=== PATIENT | female | born 1965 | race Caucasian/White ===

== ENCOUNTER 2023-10-08 00:19 | Emergency (ER) | payer BC, SELFPAY ==
--- NOTE | 2023-10-08 | ECG_ITS ---
Test Reason : PALPATATIONS Blood Pressure : / mmHG Vent. Rate : 078 BPM Atrial Rate : 078 BPM P-R Int : 180 ms QRS Dur : 100 ms QT Int : 414 ms P-R-T Axes : 051 017 050 degrees QTc Int : 471 ms Normal sinus rhythm Incomplete right bundle branch block Borderline ECG When compared with ECG of 01-JAN-2020 18:52, Nonspecific T wave abnormality, improved in Anterior leads QT has lengthened Referred By: Generic ED Physician Electronically Signed By:RYAN PABLO MD
[2023-10-08 00:26] VITALS: BP 185/109; PULSE 90; RESP 16; TEMP 36.2; O2SAT 99; BMI 27.8
--- NOTE | 2023-10-08 00:48 | MHC.EDTECH ---
Patient brought from triage,EKG taken per order,labs drawn and sent to lab.Patient brought back to waiting area.
[2023-10-08 00:50] LABS: MANUAL DIFF FLAG NO
[2023-10-08 00:51] LABS: Basophils Absolute Auto 0.1 X10*3/uL (0.0-0.2); Eosinophils Absolute Auto 0.1 X10*3/uL (0.0-0.4); Eosinophils Percent Auto 2.1 % (0-4); Hemoglobin 15.3 g/dl (12.0-16.0); Imm Gran Abs Auto 0.01 X10*3/uL (0.00-0.03); Imm Gran Pct Auto 0.2 % (0.0-0.4); Lymphocytes Absolute Auto 1.8 X10*3/uL (1.2-4.9); Lymphocytes Percent Auto 30.5 % (20-40); Mean Corpuscular HGB Conc 33.3 g/dl (31.0-35.0); Mean Corpuscular Hemoglobin 27.7 pg (27.0-33.0); Mean Corpuscular Volume 83.3 fL (80.0-98.0); Mean Platelet Volume 9.3 fL (9.4-12.3); Monocytes Absolute Auto 0.5 X10*3/uL (0.1-1.2); Monocytes Percent Auto 8.6 % (2-11); Neutrophils Absolute Auto 3.3 x10*3/uL (2.0-8.3); Neutrophils Percent Auto 57.6 % (45-73); Platelet Count 304 X10*3/uL (160-400); Red Blood Count 5.52 X10*6/uL (4.20-5.50); White Blood Count 5.8 X10*3/uL (4.8-10.8)
[2023-10-08 01:14] LABS: Troponin-I High Sensitivity 3.7 ng/L (<3.5-17.0)
--- NOTE | 2023-10-08 01:23 | ED.GENADULT ---
HPI - General Adult General Chief complaint: General Medical Stated complaint: high BP, thyroid issue ? Time Seen by Provider: 10/08/23 01:22 Source: patient Mode of arrival: ambulatory Limitations: no limitations History of Present Illness HPI narrative: 58-year-old female who presents emergency department for evaluation of palpitations, anxiety and high blood pressure. Patient states that she has been having palpitations since May of 2023 when she changed from brand name Synthroid to levothyroxine. She states that the levothyroxine was making her feel bad and she felt like several hours after taking it she would have palpitations. She states that she started take half of the dose of levothyroxine over the last 2 month without discussing this with her doctor. She states that she feels like her heart is skipping beats and beating fast especially at night. She states she is having difficulty sleeping at night because she is having anxiety and panic attacks. She is prescribed Valium 5 mg as needed for anxiety but she has not been taking this medication. She states that her blood pressure is been high and she did take an extra amlodipine prior to coming to emergency department. She states she has been compliant with this medication. She was seen 2 days prior at [facility] emergency department for palpitations. She states that time her heart rate was 100 and her blood pressure was 198/121. She states that she did have blood work but they did not check her thyroid function. The patient states that she has not discussed palpitations with her doctor and has not had a workup for her palpitations. Related Data Previous Rx's Medication Instructions Recorded Synthroid 150 mcg tablet 150 mcg PO DAILY #30 tabs 10/08/23 (levothyroxine) Allergies Allergy/AdvReac Type Severity Reaction Status Date / Time propranolol [PROPRANOLOL] Allergy Unknown UNKNOWN Unverified 07/29/20 14:48 Review of Systems Review of Systems: Yes all other systems are reviewed and are negative [facility] Past Medical History [facility] Narrative: Past medical history: Hypertension, hyperthyroidism treated with radioactive iodine-and now on thyroid replacement, anxiety social history: She denies tobacco, alcohol and drug use. Social History Smoked in Last 30 Days: No Use of substances other than those prescribed or required for medical reasons: No Advance Directives: No Advance Directives Information Provided: Yes Patient : No Physical Exam ED Vital Signs: Vital Signs - 24 hr 10/08/23 00:26 10/08/23 02:30 Temperature 97.2 F Pulse Rate 90 76 Respiratory Rate 16 18 Blood Pressure 185/109 H 134/76 Pulse Oximetry 99 97 Oxygen Delivery Method Room Air Room Air BMI result Body Mass Index 27.8 Vital signs revealed an elevated blood pressure of 185/109 Exam General: Awake, alert, appears anxious Head: Normocephalic, atraumatic EENT: PERRL, Lids normal, sclera normal, conjunctiva normal, nose normal , ears normal, throat without erythema or exudates Neck: Supple, no adenopathy, no trachea midline or C-spine tenderness Lung: breath sounds symmetric, no wheezing, rales or rhonchi Chest: symmetric movement, nontender Heart: regular rate and rhythm, normal S1, S2 no murmurs or rubs Abdomen: soft, non-tender, nondistended, normal bowel sounds Back: no vertebral tenderness, no CVAT Extremities: no deformities, moves all extremities symmetrically Neuro: Awake, alert, oriented, normal speech, moves all extremities symmetrically Psych: Pleasant, cooperative, anxious Medications Administered Discontinued Medications Generic Name Dose Route Start Last Admin Trade Name Freq PRN Reason Stop Dose Admin Lorazepam 2 mg 10/08/23 01:50 10/08/23 02:00 Lorazepam 1 Mg Tablet PO 10/08/23 01:51 2 mg ONCE STA Administration Medical Decision Making Medical Decision Making [facility] Narrative: 58-year-old female PMH Hypertension, anxiety and hyperthyroidism with induced hypothyroidism who presents emergency department for evaluation of palpitation since May 2023 -worse the last 2 months, anxiety and elevated blood pressures. Patient believe that her symptoms may have been related to generic levothyroxine and was taking half her usual dose for the last 2 months. Patient was evaluated at [facility] 2 days prior for similar symptoms and she reports that she had an elevated blood pressure and elevated pulse at that time. Physical examination revealed elevated blood pressure 185/109 with a normal heart rate of 90. Patient does appear to be anxious otherwise exam was unremarkable. Following evaluation was ordered: CBC, BMP, liver panel, troponin, TSH with reflex T4, lipase, EKG. Patient was treated with Ativan 2 mg orally 02:16 My interpretation patient's laboratory evaluation is as follows: CBC and CMP were normal. High sensitive troponin I was detectable but not elevated at 3.7 TSH was elevated 16.6 (normal range 0.32 to 4.0) Patient's 12 EKG was unremarkable with no PACs or PVCs Patient is hypothyroid secondary to being noncompliant with her medications. I did prescribe brand name Synthroid 150 mcg daily for the patient. I did tell her that it will take 4-6 weeks before this medicine corrects her hypothyroidism and before she should have her repeat TSH Patient was advised to check her blood pressures on Mondays, Wednesdays and Fridays for 2 weeks and to follow-up with her PCP to discuss these readings determine if she needs an adjustment of her antihypertensive medications She was also advised to follow-up with her PCP to discuss further workup of her palpitations and treatment for her anxiety. Differential Diagnosis Differential Diagnoses: The differential diagnosis associated with the presentation includes Differential diagnosis includes was not limited to hyperthyroidism, hypothyroidism, palpitations, myocardial ischemia, myocardial infarction, arrhythmia, anxiety, depression Admission/Observation Consideration of admission/observation: Escalation of care including admission/observation considered Lab Data [facility] Lab Attestation statement: I reviewed the patient's lab results. See [facility] 10/08/23 00:46 10/08/23 00:46 Labs: Lab Results 10/08/23 Range/Units 00:46 WBC 5.8 (4.8-10.8) X10*3/uL RBC 5.52 H (4.20-5.50) X10*6/uL Hgb 15.3 (12.0-16.0) g/dl Hct 46.0 (37.0-47.0) % MCV 83.3 (80.0-98.0) fL MCH 27.7 (27.0-33.0) pg MCHC 33.3 (31.0-35.0) g/dl RDW 13.0 (11.0-16.0) % Plt Count 304 (160-400) X10*3/uL MPV 9.3 L (9.4-12.3) fL Immature Gran % (Auto) 0.2 (0.0-0.4) % Neut % (Auto) 57.6 (45-73) % Lymph % (Auto) 30.5 (20-40) % [place] % (Auto) 8.6 (2-11) % Eos % (Auto) 2.1 (0-4) % Baso % (Auto) 1.0 (0-2) % Lymph # (Auto) 1.8 (1.2-4.9) X10*3/uL [place] # (Auto) 0.5 (0.1-1.2) X10*3/uL Eos # (Auto) 0.1 (0.0-0.4) X10*3/uL Baso # (Auto) 0.1 (0.0-0.2) X10*3/uL Abs Immat Gran (auto) 0.01 (0.00-0.03) X10*3/uL Absolute Neuts (auto) 3.3 (2.0-8.3) x10*3/uL Absolute Nucleated RBC 0.000 (0.0-0.012) X10*3/uL Nucleated RBC % (auto) 0.0 (0.0-0.2) /100WBC Sodium 141 (135-145) mmol/L Potassium 3.3 (3.3-5.1) mmol/L Chloride 103 (96-108) mmol/L Carbon Dioxide 25 (22-29) mmol/L Anion Gap 16 (12-20) BUN 13 (9-16) mg/dL Creatinine 0.97 (0.5-1.4) mg/dL Estim Creat Clear Calc 80.4 Estimated GFR 59 Random Glucose 111 (60-115) mg/dL Calcium 10.2 (8.4-10.2) mg/dL Total Bilirubin 0.7 (0.0-1.0) mg/dL Direct Bilirubin 0.2 (0.0-0.5) mg/dL AST 25 (5-31) U/L ALT 22 (0-31) U/L Alkaline Phosphatase 132 H (39-117) U/L Troponin I High Sens 3.7 (<3.5-17.0) ng/L Total Protein 8.0 (6.5-8.0) g/dL Albumin 4.6 (3.5-5.0) g/dL Lipase 44 (8-78) U/L TSH 16.60 H (0.32-4.0) uIU/mL Free T4 1.01 (0.71-1.85) ng/dL Independent Interpretation I performed an independent interpretation of an: EKG Interpretation: My independent interpretation patient's 12 EKG done at 00:40 hours is as follows: Normal sinus rhythm with a rate of 78, normal [place] interval, prolonged QRS duration 100 millisecond, normal QTC interval 471 millisecond, incomplete right bundle-branch block, no ST segment elevation, no ST segment depression, no PACs, no PVCs. Independent Historian Clinical information obtained from an independent historian. History obtained from or confirmed by: Other (Fiancee) Prescription Management I considered prescription management with: Other (Synthroid) Chronic Conditions Patient?s care impacted by: Hypertension and Other (Hypothyroidism) Discharge Plan Discharge Clinical Impression: Palpitation, Anxiety Patient Disposition: Home, Self-Care Instructions: Heart Palpitations (ED) Additional Instructions: Your CBC and CMP were normal pain Your troponin which is a marker of heart damage was normal as well. Your TSH was elevated at 16.6 is (normal is 0.32-4.0). A high TSH means that you are not taking enough thyroid medication. Therefore I want you to go back on your normal Synthroid dose. Take Synthroid 150 mcg daily. Once you restart this medication at all take 3-6 week before it has an effect and reduces your TSH. I think a big component of your palpitations and your high blood pressure may be anxiety. You were treated with Ativan ( lorazepam) 2 mg orally here in the emergency department. I want you to take your Valium at night to see if this helps with your palpitations and with your anxiety. Take your blood pressure reading in the morning on Mondays, Wednesdays and Fridays for 2 weeks and review these readings with your doctor to see if you need change your blood pressure medications. We do not treat individual blood pressure readings so do not worry if your blood pressure readings are high. Until you are re-evaluated by your doctor, continue to take your blood pressure medication as prescribed. You should discuss getting a palpitation workup with your doctor as well. This may involve tests such as a Holter monitor, echocardiogram and event monitor depending on your doctors evaluation of your symptoms Follow-up with your doctor in 2 days. Please return to the emergency department if your symptoms get worse or if you develop any symptoms that are concerning to you. Prescriptions: New levothyroxine [Synthroid] 150 mcg tablet 150 mcg PO DAILY Qty: 30 0RF Interventions: ED Discharge Assessment Last Done: 10/08/23 02:37 Discharge Date/Time: 10/08/23 02:38
[2023-10-08 01:30] LABS: Alanine Aminotransferase 22 U/L (0-31); Albumin Level 4.6 g/dL (3.5-5.0); Alkaline Phosphatase 132 U/L (39-117); Anion Gap 16 (12-20); Aspartate Amino Transferase 25 U/L (5-31); Bilirubin Direct 0.2 mg/dL (0.0-0.5); Bilirubin Total 0.7 mg/dL (0.0-1.0); Blood Urea Nitrogen 13 mg/dL (9-16); Calcium 10.2 mg/dL (8.4-10.2); Carbon Dioxide 25 mmol/L (22-29); Chloride 103 mmol/L (96-108); Creatinine Clr Calc Pharmacy 80.4; Estimated Glomerular Filt Rate 59; Glucose Random 111 mg/dL (60-115); Lipase 44 U/L (8-78); Potassium 3.3 mmol/L (3.3-5.1); Sodium 141 mmol/L (135-145)
[2023-10-08 02:00] LABS: Free T4 (Free Thyroxine) 1.01 ng/dL (0.71-1.85)
[2023-10-08] MEDS: LORazepam 1 MG TABLET 2 MG PO (02:00)
[2023-10-08 02:30] VITALS: BP 134/76; PULSE 76; RESP 18; O2SAT 97
== END 2023-10-08 02:38 | disposition home or self-care (01) ==
PROVIDERS: Emergency Provider Emergency Medicine Emergency Medical Services; PCP Internal Medicine
DX: R00.2 Palpitations (principal); F41.9 Anxiety disorder, unspecified; I10 Essential (primary) hypertension; E03.9 Hypothyroidism, unspecified; Z79.899 Other long term (current) drug therapy
CPT/HCPCS: 36415; 80048; 80076; 83690; 84439; 84443; 84484; 85025; 93005; 99283; 99284

== ENCOUNTER 2023-10-15 13:26 | Outpatient (AMB) | payer OTHER, BC, SELFPAY ==
[2023-10-15 13:34] VITALS: BP 137/91; PULSE 78; RESP 12; O2SAT 98; BMI 27.6
--- NOTE | 2023-10-15 13:34 | MHC.OFFVIS ---
Intake Vital Signs 10/15/23 13:34 Height 5 ft 11 in Weight 198 lb BMI 27.6 BP 137/91 H Blood Pressure Location Lt brachial Position Sitting Respiration 12 Pulse 78 Pulse Source Pulse Oximeter Pulse Oximetry (%) 98 Oxygen Delivery Method Room Air Intake Visit Reasons: Disorder of Sacrum/LVM Allergies propranolol [PROPRANOLOL] Allergy (Unknown, Verified 10/15/23 13:36) UNKNOWN prednisone Adverse Reaction (Severe, Verified 10/15/23 13:36) elevated BP propylthiouracil Adverse Reaction (Severe, Verified 10/15/23 13:36) urticaria Medication List - Last Reconciled 10/15/23 by Rehana Duran LPN amlodipine 5 mg PO BID diazepam 2 mg PO DAILY PRN diclofenac sodium 75 mg PO BID epinephrine 1 mg IM DAILY magnesium oxide 400 mg PO DAILY sumatriptan succinate 25 mg PO Q2-4H PRN Synthroid (levothyroxine) 150 mcg PO DAILY NS HPI Disorder of Sacrum/LVM HPI Details 58-year-old female who presents today to the office for an evaluation of disorder of sacrum. The patient was referred by Dr. Zaragoza regarding her chronic left SI joint subluxation dysfunction and pain. She had a left sacroiliac joint injection in February 2022 that resulted in a 50% improvement in her symptoms. Recently, her pain has been between a 5-8/10 in intensity. She was referred to us for consideration of either peripheral nerve stimulator placement or sacroiliac joint fixation. She had a workplace accident in March of 2022. She had a torn left medial knee meniscus. She has occasional numbness and paresthesia in her leg. She states that she was unable to get out of bed during the last week of the summer program due to pain. She did physical therapy for SIJ pain and knee pain in the past for 10 weeks. She has tried and failed diclofenac, and she is no longer taking it. She states that sacroiliac joint compression belts worsened her symptoms, and compression made her pain worse, so she stopped using them. She attended about two months of physical therapy afterwards, which was somewhat helpful, but she was still uncomfortable doing some things. She was unable to wear knee braces. [facility] Medical History (Updated 10/19/23 @ 10:53 by Giovanni Nieto MD) Disorder of sacrum Review of Systems Const All systems reviewed & are unremarkable except as noted in HPI and below Physical Exam Vital Signs: Last Vital Signs Pulse 78 10/15/23 13:34 Resp 12 10/15/23 13:34 BP 137/91 H 10/15/23 13:34 Pulse Ox 98 10/15/23 13:34 Oxygen Delivery Method Room Air 10/15/23 13:34 BMI result Body Mass Index 27.6 General: Appears afebrile. Alert and oriented. Mood and affect appropriate. Follows and participates in conversation appropriately. Respiratory effort is unlabored. Able to transition from sit to stand unassisted. Ambulates with bilaterally normal heel strike and toe off. Forward flexion reproduces pain in the left buttock. Lumbar extension reproduces pain in the left buttock. SIJ compression, distraction, and STELLA are positive. Results Reviewed Results Reviewed: No imaging is available for review. Assessment & Plan Assessment & Plan (1) Injury of meniscus of left knee: Code(s): S83.8X2A - Sprain of other specified parts of left knee, initial encounter Qualifiers: Encounter type: initial encounter Qualified Code(s): S83.8X2A - Sprain of other specified parts of left knee, initial encounter (2) Sacroiliac joint pain: Code(s): M53.3 - Sacrococcygeal disorders, not elsewhere classified Plan Will schedule her for a repeat left diagnostic sacroiliac joint injection. Discussed the risks and benefits of the procedure with the patient in detail. All questions were answered. The patient is on board with the plan. Also asked her to bring her MRI images next time for review. Will consider PRP and A2M injections to the knee and potentially SI ligaments in the future instead of corticosteroids. Justification for interventional therapy: ? Patient with average pain > 6/10 ? Patient has exhausted conservative therapy for SI joint pain Scribed for Dr. Nieto by Morteza Williamson, medical accounting clerk, on 10/15/2023. I, Dr. Nieto, have personally reviewed and agree with the information entered by the scribe. Coding Level of Care Code New Pt Level 4 (92088) Diagnoses Injury of meniscus of left knee, initial encounter S83.8X2A Encounter type: initial encounter Sacroiliac joint pain M53.3
== END 2023-10-15 14:09 | disposition home or self-care (01) ==
PROVIDERS: PCP Internal Medicine; Referring Provider Internal Medicine; Visit Provider Internal Medicine
DX: S83.8X2A Sprain of other specified parts of left knee, initial encounter (principal); M53.3 Sacrococcygeal disorders, not elsewhere classified
CPT/HCPCS: 99204

== ENCOUNTER → 2023-10-15 13:26 | Outpatient (BNVA) | payer OTHER, BC, SELFPAY | PROVIDERS: PCP Internal Medicine; Referring Provider Internal Medicine; Visit Provider Internal Medicine | DX: M53.3 Sacrococcygeal disorders, not elsewhere classified (principal); S83.8X2A Sprain of other specified parts of left knee, initial encounter | CPT/HCPCS: 99202 ==

== ENCOUNTER 2023-10-31 06:30 | Outpatient (REF) | payer OTHER, BC, SELFPAY ==
--- NOTE | ~2023-10-31 | FL_ITS ---
EXAMINATION: XR FLUOROSCOPY WITH IMAGES CLINICAL INFORMATION: Sacrococcygeal disorders, not elsewhere classified. COMPARISON: None available. TECHNIQUE: Fluoroscopy Supervised By: Dr. Giovanni Nieto. Fluoroscopy Time: 0.1 minute. Cumulative Dose: 3.02 mGy. DAP: 0.260 Gycm2. Images: 2. FINDINGS: Images demonstrate needle placement over the left lateral proximal sacrum FL/FL guidance in treatment room IMPRESSION: Fluoroscopy guidance for pain management procedure.
== END 2023-10-31 06:31 | disposition home or self-care (01) ==
LOC: CF 06:30
PROVIDERS: Visit Provider Internal Medicine
DX: M53.3 Sacrococcygeal disorders, not elsewhere classified (principal)
CPT/HCPCS: 27096; J2795; Q9967

== ENCOUNTER 2023-10-31 07:49 | Outpatient (AMB) | payer OTHER, BC, SELFPAY ==
[2023-10-31 07:56] VITALS: BP 130/78; PULSE 73; RESP 12; O2SAT 98
--- NOTE | 2023-10-31 07:56 | MHC.OFFVIS ---
Intake Vital Signs 10/31/23 07:56 10/31/23 08:22 BP 130/78 120/66 Blood Pressure Location Lt brachial Lt brachial Position Sitting Sitting Respiration 12 12 Pulse 73 72 Pulse Source Pulse Oximeter Pulse Oximeter Pulse Oximetry (%) 98 100 Oxygen Delivery Method Room Air Room Air Intake Visit Reasons: Left Dx SIJ inj Allergies propranolol [PROPRANOLOL] Allergy (Unknown, Verified 10/31/23 07:56) UNKNOWN prednisone Adverse Reaction (Severe, Verified 10/31/23 07:56) elevated BP propylthiouracil Adverse Reaction (Severe, Verified 10/31/23 07:56) urticaria HPI Left Dx SIJ inj HPI Details Patient presents for scheduled procedure. Denies any recent cough, cold, infection, fever or other significant changes in medical history since last office visit. [facility] Medical History (Updated 10/19/23 @ 10:53 by Giovanni Nieto MD) Disorder of sacrum Physical Exam Vital Signs: Last Vital Signs Pulse 72 10/31/23 08:22 Resp 12 10/31/23 08:22 BP 120/66 10/31/23 08:22 Pulse Ox 100 10/31/23 08:22 Oxygen Delivery Method Room Air 10/31/23 08:22 Office Procedures Joint Injection/Drain Joint Injection/Drain Details: Sacroiliac Joint Injection, Left The procedure, its benefits, and its risks were explained and written informed consent was obtained from the patient. Immediately prior to starting the procedure, a time-out safety check was conducted. The patient's identification, procedure name, procedure site, and procedure laterality were confirmed with the patient. ? Patient was placed prone on the fluoroscopy table and the lumbosacral area was prepped using ChloraPrep and draped with sterile drapein standard fashion. The C-arm was rotated in a contralateral oblique fashion until the medial border of the iliac crest no longer foreshadowed the posterior sacroiliac joint line. The skin and subcutaneous tissue was anesthetized using 1 mL of 0.75% plain lidocaine with 1.5-inch 25-gauge needle in the middle region of the joint line.?A 3.5-inch 22-gauge spinal needle with small bend on the tip was slowly advanced towards the joint line, coaxial to the x-ray beam. Once bony content was obtained, the needle was easily slid into the intra-articular space.? Intra-articular needle position was confirmed using lateral fluoroscopy.? A total volume of 2 mL of solution containing 0.5% of ropivacaine was injected intra-articularly. The stylet was reinserted and needle was removed. The patient tolerated the procedure well. Patient denied any lower extremity weakness or numbness. Patient was observed for 30 min and was discharged after fulfilling the standard discharge criteria. Coding 37918 - Sacroiliac Procedure code (CPT) selection complete Assessment & Plan Assessment & Plan (1) Sacroiliac joint pain: Code(s): M53.3 - Sacrococcygeal disorders, not elsewhere classified Plan Patient is status post left diagnostic SIJ injection. Patient tolerated procedure well and was discharged home in stable condition with discharge instructions. All questions were answered. We will follow-up via telephone or in clinic to assess response to therapy. A follow-up appointment was made during today's visit. Orders: Orders FL guidance in treatment room Today M53.3 - Sacrococcygeal disorders, not elsewhere classified Coding Level of Care Code Procedure Only Diagnoses Sacroiliac joint pain M53.3 CPT Codes Coding - Joint 9: 91791 - Sacroiliac ([id number])
[2023-10-31 08:22] VITALS: BP 120/66; PULSE 72; RESP 12; O2SAT 100
== END 2023-10-31 08:15 | disposition home or self-care (01) ==
LOC: HO.PMCPRC 07:49
PROVIDERS: PCP Internal Medicine; Visit Provider Internal Medicine
DX: M53.3 Sacrococcygeal disorders, not elsewhere classified (principal)
CPT/HCPCS: 27096

== ENCOUNTER 2023-11-02 08:01 | Outpatient (AMB) | payer OTHER, BC, SELFPAY ==
--- NOTE | 2023-11-02 08:03 | A.OFFVIS_ITS ---
Intake Vital Signs 11/02/23 08:04 Height 5 ft 11 in Weight 199 lb BMI 27.8 Blood Pressure Location Lt brachial Position Sitting Respiration 12 Pulse 85 Pulse Source Pulse Oximeter Pulse Oximetry (%) 98 Oxygen Delivery Method Room Air Intake Visit Reasons: s/p Left Dx SIJ inj/confirmed Allergies propranolol [PROPRANOLOL] Allergy (Unknown, Verified 11/02/23 08:06) UNKNOWN chlorhexidine Allergy (Verified 11/02/23 08:35) Unknown prednisone Adverse Reaction (Severe, Verified 11/02/23 08:06) elevated BP propylthiouracil Adverse Reaction (Severe, Verified 11/02/23 08:06) urticaria Medication List - Last Reconciled 11/02/23 by Rehana Duran LPN amlodipine 5 mg PO BID diazepam 2 mg PO DAILY PRN diclofenac sodium 75 mg PO BID epinephrine 1 mg IM DAILY magnesium oxide 400 mg PO DAILY sumatriptan succinate 25 mg PO Q2-4H PRN Synthroid (levothyroxine) 150 mcg PO DAILY NS HPI s/p Left Dx SIJ inj/confirmed HPI Details 58-year-old female who presents today to the office for a status post left diagnostic SIJ injection. The patient reports 90% relief following the procedure, which is ongoing. She reports developing a pruritic rash around the site of the procedure, which is healing well. Likely allergic to chloraprep. She was able to restart HEP with the relief that she got. She is is here to discuss longer term treatment options today. Past procedure: 10/31/23: Diagnostic Sacroiliac Joint In [facility], Left: 90% relief, ongoing 2 days out. [facility] Medical History (Updated 10/19/23 @ 10:53 by Giovanni Nieto MD) Disorder of sacrum Review of Systems Const All systems reviewed & are unremarkable except as noted in HPI and below Physical Exam Vital Signs: Last Vital Signs Pulse 85 11/02/23 08:04 Resp 12 11/02/23 08:04 Pulse Ox 98 11/02/23 08:04 Oxygen Delivery Method Room Air 11/02/23 08:04 BMI result Body Mass Index 27.8 General: Appears afebrile. Alert and oriented. Mood and affect appropriate. Follows and participates in conversation appropriately. Respiratory effort is unlabored. Able to transition from sit to stand unassisted. Ambulates with bilaterally normal heel strike and toe off. Results Reviewed Results Reviewed: No imaging is available for review. Assessment & Plan Assessment & Plan (1) Sacroiliac joint pain: Code(s): M53.3 - Sacrococcygeal disorders, not elsewhere classified (2) Injury of meniscus of left knee: Code(s): S83.8X2A - Sprain of other specified parts of left knee, initial encounter Qualifiers: Encounter type: initial encounter Qualified Code(s): S83.8X2A - Sprain of other specified parts of left knee, initial encounter Plan Discussed temporary nerve stimulators vs. cortisone injections vs. PRP injections as a possible treatment option. The patient is interested in proceeding with PRP injection targetting both her knee and sacroiliac joint injuries. I discussed the procedure details and benefits. We will submit a request for approval to and inform her of the outcome. Patient is in agreement with the plan. She has failed conservative management and is not interested in pursuing surgical options. She did physical therapy for SIJ pain and knee pain in the for 10 weeks. She has tried and failed diclofenac, and she is no longer taking it. She states that sacroiliac joint compression belts worsened her symptoms, and compression made her pain worse, so she stopped using them. She attended about two months of physical therapy afterwards, which was somewhat helpful, but she was still uncomfortable doing daily activities. She was unable to wear knee braces and continues to have significant knee discomfort. References: Shameka Peters., Corie, YRadames., Storm Villalobos., Erica, Kiya. and Storm Tuttle. (2017), Steroid vs. Platelet-Rich Plasma in Ultrasound-Guided Sacroiliac Joint Injection for Chronic Low Back Pain. Pain Pract, 17: 782-791. Damion Cook., Tee PKun., Ana Watt., Flores Rosenberg., Joey C.R., Ty, A.M. and Armin, F.M. (2016), Multiple injections of leukoreduced platelet rich plasma reduce pain and functional impairment in a canine model of ACL and meniscal deficiency. J. Orthop. Res., 34: 607-615.? Ashley-Isael I, Richa P, Sharon S, Rene A, Cory Milligan F, Praneeth M, Rai D. Clinical and Functional Outcome of Meniscal Injuries Treated with Platelet-Rich Plasma: A Single-Center Case Series. Int J Environ Res Public Health. 2021Apr 21;19(12):4916. Scribed for Dr. Nieto by Morteza Williamson, vp medical, on 11/02/2023. I, Dr. Nieto, have personally reviewed and agree with the information entered by the scribe. Coding Level of Care Code Est Pt Level 4 (85992) Diagnoses Sacroiliac joint pain M53.3 Injury of meniscus of left knee, initial encounter S83.8X2A Encounter type: initial encounter
[2023-11-02 08:04] VITALS: PULSE 85; RESP 12; O2SAT 98; BMI 27.8
== END 2023-11-02 08:32 | disposition home or self-care (01) ==
PROVIDERS: PCP Internal Medicine; Visit Provider Internal Medicine
DX: M53.3 Sacrococcygeal disorders, not elsewhere classified (principal); S83.8X2A Sprain of other specified parts of left knee, initial encounter
CPT/HCPCS: 99214

== ENCOUNTER → 2023-11-02 08:01 | Outpatient (BNVA) | payer OTHER, BC, SELFPAY | PROVIDERS: PCP Internal Medicine; Visit Provider Internal Medicine | DX: M53.3 Sacrococcygeal disorders, not elsewhere classified (principal); S83.8X2A Sprain of other specified parts of left knee, initial encounter | CPT/HCPCS: 99212 ==

== ENCOUNTER 2024-02-25 00:24 | Emergency (ER) | payer BC, SELFPAY ==
--- NOTE | 2024-02-25 | ECG_ITS ---
Test Reason : chest pain Blood Pressure : / mmHG Vent. Rate : 074 BPM Atrial Rate : 074 BPM P-R Int : 184 ms QRS Dur : 096 ms QT Int : 414 ms P-R-T Axes : 030 003 056 degrees QTc Int : 459 ms Normal sinus rhythm Normal ECG When compared with ECG of 08-OCT-2023 00:40, No significant change was found Referred By: Generic ED Physician Electronically Signed By:EVERARDO SYED
[2024-02-25 00:39] VITALS: BP 166/111; PULSE 78; RESP 18; TEMP 36.6; O2SAT 98; BMI 27.9
[2024-02-25 00:53] LABS: MANUAL DIFF FLAG NO
[2024-02-25 00:54] LABS: Basophils Absolute Auto 0.1 X10*3/uL (0.0-0.2); Eosinophils Absolute Auto 0.1 X10*3/uL (0.0-0.4); Eosinophils Percent Auto 1.8 % (0-4); Hematocrit 44.8 % (37.0-47.0); Hemoglobin 14.9 g/dl (12.0-16.0); Imm Gran Abs Auto 0.01 X10*3/uL (0.00-0.03); Imm Gran Pct Auto 0.2 % (0.0-0.4); Lymphocytes Absolute Auto 1.6 X10*3/uL (1.2-4.9); Lymphocytes Percent Auto 31.5 % (20-40); Mean Corpuscular HGB Conc 33.3 g/dl (31.0-35.0); Mean Corpuscular Hemoglobin 27.9 pg (27.0-33.0); Mean Corpuscular Volume 83.9 fL (80.0-98.0); Mean Platelet Volume 9.1 fL (9.4-12.3); Monocytes Absolute Auto 0.4 X10*3/uL (0.1-1.2); Monocytes Percent Auto 8.6 % (2-11); Neutrophils Absolute Auto 2.8 x10*3/uL (2.0-8.3); Neutrophils Percent Auto 56.9 % (45-73); Platelet Count 278 X10*3/uL (160-400); Red Blood Count 5.34 X10*6/uL (4.20-5.50); Red Cell Distribution Width 13.1 % (11.0-16.0)
[2024-02-25 01:10] LABS: Alanine Aminotransferase 25 U/L (0-31); Albumin Level 4.6 g/dL (3.5-5.0); Alkaline Phosphatase 127 U/L (39-117); Anion Gap 15 (12-20); Aspartate Amino Transferase 24 U/L (5-31); Bilirubin Total 0.8 mg/dL (0.0-1.0); Blood Urea Nitrogen 14 mg/dL (9-16); Calcium 9.6 mg/dL (8.4-10.2); Carbon Dioxide 24 mmol/L (22-29); Chloride 106 mmol/L (96-108); Estimated Glomerular Filt Rate > 60; Glucose Random 112 mg/dL (60-115); Potassium 3.3 mmol/L (3.3-5.1); Sodium 142 mmol/L (135-145); Total Protein 7.8 g/dL (6.5-8.0)
[2024-02-25 01:18] LABS: Troponin-I High Sensitivity < 2.7 ng/L (<3.5-17.0)
[2024-02-25 01:30] LABS: Influenza A PCR NEGATIVE (Negative); Influenza B PCR NEGATIVE (Negative); Resp Syncy Virus RNA Qual PCR NEGATIVE (Negative); SARS COV2 PCR INHOUSE NEGATIVE (Negative)
[2024-02-25 01:31] LABS: Thyroid Stimulating Hormone 2.22 uIU/mL (0.32-4.0)
[2024-02-25 02:04] VITALS: BP 152/88; PULSE 66; RESP 16; TEMP 36.8; O2SAT 98
--- NOTE | 2024-02-25 02:05 | MHC.EDTECH ---
Patient was called back to triage and was re vital .
[2024-02-25 04:21] VITALS: BP 170/109; PULSE 75; RESP 18; TEMP 36.7; O2SAT 100
--- NOTE | 2024-02-25 04:32 | PC.NURSE ---
blood pressured reassessed, charge nurse aware, repeat trop drawn. pt backing waiting room
[2024-02-25 04:56] LABS: Troponin-I High Sensitivity < 2.7 ng/L (<3.5-17.0)
[2024-02-25 06:07] VITALS: BP 173/104; PULSE 74; RESP 18; TEMP 36.6; O2SAT 97
--- NOTE | 2024-02-25 06:09 | ED.GENADULT ---
HPI - General Adult General Chief complaint: General Medical Stated complaint: chest pains BP high Time Seen by Provider: 02/25/24 06:09 Source: patient Mode of arrival: ambulatory Limitations: no limitations History of Present Illness HPI narrative: 58-year-old female who presents emergency department for evaluation of chest pain radiating to the left arm, elevated blood pressure, palpitations, elevated blood pressure. The patient states she has had palpitations are on and off for approximately 1 year. She describes these palpitations as a rapid heartbeat and skipped beats. She states that the symptoms seem to be worse at night. Palpitations have become worse over the last week. Patient states that yesterday she just felt out of it . She states that she has been checking her blood pressure and her blood pressures have been high. One of her high as readings was 166/111. She states that she has been experiencing intermittent chest pain. She points to her left anterior chest when asked to localize the pain, she describes the pain is a pressure-like pain and pain does occasionaly radiate to the left arm. She also states she has occasions were she feels short of breath and gets a tingling sensation in her hands and feet associated with the chest pain. She denies perioral numbness but she does feel lightheaded and dizzy when she gets these symptoms. The patient states that since being on amlodipine for blood pressure she has noticed peripheral edema and she believes that the swelling is gotten worse. She states she has been on hydrochlorothiazide in the past but this was stopped by her PCP. The patient does admit to being under increased stress. One of her recent stressors is the fact that her fiance who has a seizure disorder had a seizure approximately 1 week ago and she witness the seizure. She states that it is the 1st time that she has seen is seizure since she has been with her fiance. She states she is worried about her fiancee's health. Patient states she is also concerned about her thyroid medication. She has been seen in the past here in the emergency department for her thyroid issue and she states that she believes that she is now on the right medication does however she still concerned that her thyroid function may be off. Related Data Home Medications ?Medication ?Instructions ?Recorded ?Confirmed amlodipine 5 mg tablet 5 mg PO BID 10/15/23 11/02/23 diazepam 2 mg tablet 2 mg PO DAILY PRN 10/15/23 11/02/23 diclofenac sodium 75 mg 75 mg PO BID 10/15/23 11/02/23 tablet,delayed release epinephrine 0.3 mg/0.3 mL 1 mg IM DAILY 10/15/23 11/02/23 injection, auto-injector magnesium oxide 400 mg (241.3 mg 400 mg PO DAILY 10/15/23 11/02/23 magnesium) tablet sumatriptan succinate 25 mg tablet 25 mg PO Q2-4H PRN 10/15/23 11/02/23 Previous Rx's ?Medication ?Instructions ?Recorded Synthroid 150 mcg tablet 150 mcg PO DAILY #30 tabs 10/08/23 (levothyroxine) Allergies Allergy/AdvReac Type Severity Reaction Status Date / Time propranolol [PROPRANOLOL] Allergy Unknown UNKNOWN Verified 02/25/24 00:41 chlorhexidine Allergy Unknown Verified 02/25/24 00:41 prednisone AdvReac Severe elevated BP Verified 02/25/24 00:41 propylthiouracil AdvReac Severe urticaria Verified 02/25/24 00:41 Review of Systems Review of Systems: Yes all other systems are reviewed and are negative [facility] Past Medical History [facility] Narrative: Social history: She has a fiancee who was also patient here in the emergency department for altered mental status insomnia. She denies tobacco, alcohol and drug use. Medical History (Updated 02/26/24 @ 00:00 by Felix Daclaudia) Disorder of sacrum Social History Social History Advance Directives: No Advance Directives Information Provided: Yes Physical Exam ED Vital Signs: Vital Signs - 24 hr 02/25/24 00:39 02/25/24 02:04 02/25/24 04:21 Temperature 97.8 F 98.3 F 98.0 F Pulse Rate 78 66 75 Respiratory Rate 18 16 18 Blood Pressure 166/111 H 152/88 H 170/109 H Pulse Oximetry 98 98 100 Oxygen Delivery Method Room Air Room Air 02/25/24 06:07 Temperature 97.9 F Pulse Rate 74 Respiratory Rate 18 Blood Pressure 173/104 H Pulse Oximetry 97 Oxygen Delivery Method Room Air BMI result Body Mass Index 27.9 vital signs did reveal elevated blood pressures Exam: General: Awake, alert in no distress Head: Normocephalic, atraumatic EENT: PERRL, Lids normal, sclera normal, conjunctiva normal, nose normal , ears normal, throat without erythema or exudates Neck: Supple, no adenopathy Lung: breath sounds symmetric, no wheezing, rales or rhonchi Chest: symmetric movement, nontender Heart: regular rate and rhythm, normal S1, S2 no murmurs or rubs Abdomen: soft, non-tender, nondistended, normal bowel sounds Back: no vertebral tenderness, no CVAT Extremities: no deformities, moves all extremities symmetrically Neuro: Awake, alert, oriented, normal speech, cranial nerves intact, moves all extremities symmetrically Psych: Pleasant, cooperative Medical Decision Making Medical Decision Making MDM Narrative: 58-year-old female who presents emergency department for evaluation of chest pain radiating to the left armWith associated lightheadedness, numbness in hands and feet, elevated blood pressures, palpitations x1 year worse over the last week , increased peripheral edema and concerns about her hypothyroid medications. The patient states she has been under increased stress and also is concerned about her fiance his health , which is been a significant stressor. Differential diagnosis: Includes but is not limited to myocardial infarction, myocardial ischemia, arrhythmias, electrolyte abnormalities, thyroid abnormalities, stress, anxiety, hypertension, anemia, electrolyte abnormalities Following evaluation was ordered: CBC, CMP, TSH, troponin x2, EKG, COVID-19, influenza, RSV Course: My independent interpretation of the patient's laboratory evaluation is as follows: CBC and CMP were normal. High sensitive troponin I initially was below detectable limits and repeat greater than 4 hours later was again below detectable limits suggesting the patient does not have myocardial injury or infarction is the cause of her chest pain. The COVID-19, influenza and RSV were negative. Patient's TSH was normal at 2.2 suggesting that the patient's thyroid medication doses appropriate. The patient's laboratory evaluation in 12 EKG were unremarkable. Patient does have elevated blood pressures but she is anxious and I believe that this is a contributor to her elevated blood pressure. My impression is that the patient has significant anxiety and stress and recently has had increased concerns about her fiancee's health which is causing her symptoms of chest pain, palpitations, paresthesias, lightheadedness and dizziness. I did discuss management of hypertension with the patient. The patient was instructed to check her blood pressures on Mondays, Wednesdays and for 2 weeks into review these blood pressure readings with her PCP to see if she needs a change in her blood pressure medication regimen. The patient does take diazepam p.r.n. and I told her to take it at night for the next week to see if this reduces her palpitations and symptoms that she is experiencing at night. She was given printed and verbal instructions and discharged home. Admission/Observation Consideration of admission/observation: Escalation of care including admission/observation considered Lab Data MDM Lab Attestation statement: I reviewed the patient's lab results. 02/25/24 00:49 02/25/24 00:49 Labs: Lab Results 02/25/24 02/25/24 Range/Units 00:49 04:26 WBC 5.0 (4.8-10.8) X10*3/uL RBC 5.34 (4.20-5.50) X10*6/uL Hgb 14.9 (12.0-16.0) g/dl Hct 44.8 (37.0-47.0) % MCV 83.9 (80.0-98.0) fL MCH 27.9 (27.0-33.0) pg MCHC 33.3 (31.0-35.0) g/dl RDW 13.1 (11.0-16.0) % Plt Count 278 (160-400) X10*3/uL MPV 9.1 L (9.4-12.3) fL Immature Gran % (Auto) 0.2 (0.0-0.4) % Neut % (Auto) 56.9 (45-73) % Lymph % (Auto) 31.5 (20-40) % [place] % (Auto) 8.6 (2-11) % Eos % (Auto) 1.8 (0-4) % Baso % (Auto) 1.0 (0-2) % Lymph # (Auto) 1.6 (1.2-4.9) X10*3/uL [place] # (Auto) 0.4 (0.1-1.2) X10*3/uL Eos # (Auto) 0.1 (0.0-0.4) X10*3/uL Baso # (Auto) 0.1 (0.0-0.2) X10*3/uL Abs Immat Gran (auto) 0.01 (0.00-0.03) X10*3/uL Absolute Neuts (auto) 2.8 (2.0-8.3) x10*3/uL Absolute Nucleated RBC 0.000 (0.0-0.012) X10*3/uL Nucleated RBC % (auto) 0.0 (0.0-0.2) /100WBC Sodium 142 (135-145) mmol/L Potassium 3.3 (3.3-5.1) mmol/L Chloride 106 (96-108) mmol/L Carbon Dioxide 24 (22-29) mmol/L Anion Gap 15 (12-20) BUN 14 (9-16) mg/dL Creatinine 0.94 (0.5-1.4) mg/dL Estim Creat Clear Calc 83.0 Estimated GFR > 60 Random Glucose 112 (60-115) mg/dL Calcium 9.6 (8.4-10.2) mg/dL Total Bilirubin 0.8 (0.0-1.0) mg/dL AST 24 (5-31) U/L ALT 25 (0-31) U/L Alkaline Phosphatase 127 H (39-117) U/L Troponin I High Sens < 2.7 < 2.7 (<3.5-17.0) ng/L Total Protein 7.8 (6.5-8.0) g/dL Albumin 4.6 (3.5-5.0) g/dL TSH 2.22 (0.32-4.0) uIU/mL Influenza Type A (PCR) NEGATIVE (Negative) Influenza Type B (PCR) NEGATIVE (Negative) RSV RNA Qual (PCR) NEGATIVE (Negative) SARS-CoV-2 RNA (RT-PCR) NEGATIVE (Negative) Independent Interpretation I performed an independent interpretation of an: EKG Interpretation: My independent interpretation the patient's 12 EKG done at 00:31 hours is as follows: Normal sinus rhythm with a rate of 74, normal NV interval, QRS duration QTC interval, no ST segment elevation, no ST segment depression, no significant T-wave abnormalities, no PACs, no PVCs, 1 pair to EKG dated 10/08/2023 there is no significant change. This is a normal EKG. Chronic Conditions Patient?s care impacted by: Hypertension Discharge Plan Discharge Clinical Impression: Palpitation, Chest pain, Essential hypertension, Anxiety Patient Disposition: Home, Self-Care Additional Instructions: Your complete blood count and comprehensive metabolic panel were normal. Your high sensitivity troponin I was initially below detectable limits and the repeat value 4 hours later was also below detectable limits. This is very reassuring suggesting that your chest pain is not caused a heart attack or heart injury. Your EKG was also normal which is reassuring as well At this time I believe that your palpitations, elevated blood pressure and chest pain are related to stress and anxiety. I want you to take your diazepam at night for the next week to see if this improves your stress and anxiety and helps you sleep. Continue to take your blood pressure medication as prescribed. Check your blood pressures in the mornings on Mondays, Wednesdays and Fridays for 2 weeks. Write these blood pressures down and show them and your doctor. These readings will help your doctor in determining whether or not you need a change in your blood pressure medications Do not take your blood pressure when you are feeling ill since these readings will often be elevated due to stress of being ill. Follow-up with your doctor in 2 weeks Please return to the emergency department if your symptoms get worse or if you develop any symptoms that are concerning to you. Prescriptions: No Action levothyroxine [Synthroid] 150 mcg tablet 150 mcg PO DAILY Qty: 30 0RF amlodipine 5 mg tablet 5 mg PO BID magnesium oxide 400 mg (241.3 mg magnesium) tablet 400 mg PO DAILY sumatriptan succinate 25 mg tablet 25 mg PO Q2-4H PRN diazepam 2 mg tablet 2 mg PO DAILY PRN diclofenac sodium 75 mg tablet,delayed release (DR/EC) 75 mg PO BID epinephrine 0.3 mg/0.3 mL auto-injector 1 mg IM DAILY Interventions: ED Discharge Assessment Last Done: 02/25/24 07:05 Discharge Date/Time: 02/25/24 07:07 Print Language: Austrian
[2024-02-25 07:05] VITALS: BP 165/109; PULSE 75; RESP 16; TEMP 36.6; O2SAT 98
== END 2024-02-25 07:07 | disposition home or self-care (01) ==
PROVIDERS: Emergency Medicine; Emergency Provider Emergency Medicine Emergency Medical Services; PCP Internal Medicine
DX: R07.9 Chest pain, unspecified (principal); R00.2 Palpitations; F41.9 Anxiety disorder, unspecified; I10 Essential (primary) hypertension; Z03.818 Encounter for observation for suspected exposure to other biological agents ruled out
CPT/HCPCS: 0241U; 36415; 80053; 84443; 84484; 85025; 93005; 99283

== ENCOUNTER → 2024-02-25 00:31 | Outpatient (BNV) | payer BC, SELFPAY | PROVIDERS: Emergency Provider Emergency Medicine Emergency Medical Services; PCP Internal Medicine; Visit Provider Internal Medicine | DX: R07.9 Chest pain, unspecified (principal) | CPT/HCPCS: 93010 ==

== ENCOUNTER 2024-03-20 20:23 | Emergency (ER) | payer BC, SELFPAY ==
[2024-03-20] VITALS (8 sets, daily range): BP systolic 139–212; BP diastolic 92–159; PULSE 71–91; RESP 15–20; TEMP 36.8–36.9; O2SAT 96–100; BMI 27.9
--- NOTE | ~2024-03-20 | XR_ITS ---
EXAMINATION: XR CHEST CLINICAL INFORMATION: Chest pain COMPARISON: Chest radiograph from 06/14/2011 TECHNIQUE: Frontal view of the chest was obtained. FINDINGS: No focal consolidation. No pneumothorax. Trachea is midline. Cardiac mediastinal silhouette is not enlarged. No large pleural effusion. Osseous structures are intact. Soft tissues are unremarkable. XR/XR chest 1V IMPRESSION: No acute cardiopulmonary process.
--- NOTE | ~2024-03-20 | CT_ITS ---
EXAMINATION: CT HEAD WITHOUT CONTRAST CLINICAL INFORMATION: Headache. Hypertension COMPARISON: Portions of a previous head CT 01/01/20 TECHNIQUE: Multidetector CT examination of the head is performed without contrast. This CT examination was performed using dose optimization techniques as appropriate, variously including the following: *Automated exposure control *Adjustment of mA and/or kV according to patient size (this includes techniques or standardized protocols for targeted exams where dose is matched to indication/reason for exam; i.e. extremities or head) *Use of iterative reconstruction technique DLP: 643 mGy-cm FINDINGS: There is no evidence of a recent intracranial hemorrhage or extra-axial collection. The midline structures are nondisplaced. The ventricles, cisterns, and sulci are within normal limits. There is no evidence of an intra-axial mass. There are no suspicious focal areas of abnormal brain attenuation. The jacobs-white interface is within normal limits. There is no evidence of acute territorial infarct. Moderate nonspecific patchy white matter disease with some more localized focal areas of white matter low attenuation similar to previous. The paranasal sinuses and mastoids are within normal limits. CT/CT head/brain wo IV con IMPRESSION: 1. There is no evidence of a recent intracranial hemorrhage. 2. No acute infarct. 3. Nonspecific but unchanged moderately severe white matter disease possibly microangiopathy
--- NOTE | 2024-03-20 20:27 | ECG_ITS ---
Test Reason : CP Blood Pressure : / mmHG Vent. Rate : 083 BPM Atrial Rate : 083 BPM P-R Int : 194 ms QRS Dur : 102 ms QT Int : 388 ms P-R-T Axes : 039 002 043 degrees QTc Int : 455 ms Normal sinus rhythm with sinus arrhythmia Possible Left atrial enlargement Incomplete right bundle branch block Borderline ECG When compared with ECG of 25-FEB-2024 00:31, Nonspecific T wave abnormality no longer evident in Lateral leads Referred By: Ray Carroll Electronically Signed By:Demertio Morin
[2024-03-20 20:45] LABS: MANUAL DIFF FLAG NO
[2024-03-20 20:53] LABS: Basophils Absolute Auto 0.1 X10*3/uL (0.0-0.2); Basophils Percent Auto 1.2 % (0-2); Eosinophils Absolute Auto 0.1 X10*3/uL (0.0-0.4); Eosinophils Percent Auto 1.5 % (0-4); Hematocrit 44.5 % (37.0-47.0); Hemoglobin 15.1 g/dl (12.0-16.0); Imm Gran Abs Auto 0.01 X10*3/uL (0.00-0.03); Imm Gran Pct Auto 0.1 % (0.0-0.4); Lymphocytes Absolute Auto 1.7 X10*3/uL (1.2-4.9); Lymphocytes Percent Auto 25.3 % (20-40); Mean Corpuscular HGB Conc 33.9 g/dl (31.0-35.0); Mean Corpuscular Hemoglobin 28.3 pg (27.0-33.0); Mean Corpuscular Volume 83.3 fL (80.0-98.0); Mean Platelet Volume 9.4 fL (9.4-12.3); Monocytes Absolute Auto 0.4 X10*3/uL (0.1-1.2); Monocytes Percent Auto 6.1 % (2-11); Neutrophils Absolute Auto 4.4 x10*3/uL (2.0-8.3); Neutrophils Percent Auto 65.8 % (45-73); Platelet Count 280 X10*3/uL (160-400); Red Blood Count 5.34 X10*6/uL (4.20-5.50); White Blood Count 6.7 X10*3/uL (4.8-10.8)
[2024-03-20 21:01] LABS: INTERNATIONAL NORM RATIO 0.9 (0.9-1.1); Prothrombin Time 11.4 SEC (11.1-13.3)
[2024-03-20 21:03] LABS: Partial Thromboplastin Time 32.8 SEC (26.0-36.8)
[2024-03-20 21:07] LABS: B Type Natriuretic Peptide 34 pg/mL (<100)
[2024-03-20 21:08] LABS: Troponin-I High Sensitivity 5.6 ng/L (<3.5-17.0)
[2024-03-20 21:09] LABS: Alanine Aminotransferase 25 U/L (0-31); Albumin Level 4.6 g/dL (3.5-5.0); Alkaline Phosphatase 128 U/L (39-117); Anion Gap 17 (12-20); Aspartate Amino Transferase 24 U/L (5-31); Bilirubin Total 0.4 mg/dL (0.0-1.0); Blood Urea Nitrogen 20 mg/dL (9-16); Calcium 10.1 mg/dL (8.4-10.2); Carbon Dioxide 25 mmol/L (22-29); Chloride 104 mmol/L (96-108); Creatinine Clr Calc Pharmacy 69.1; Estimated Glomerular Filt Rate 50; Glucose Random 104 mg/dL (60-115); Potassium 2.8 mmol/L (3.3-5.1); Sodium 143 mmol/L (135-145); Total Protein 7.7 g/dL (6.5-8.0)
[2024-03-20 21:25] LABS: Influenza A PCR NEGATIVE (Negative); Influenza B PCR NEGATIVE (Negative); Resp Syncy Virus RNA Qual PCR NEGATIVE (Negative); SARS COV2 PCR INHOUSE NEGATIVE (Negative)
[2024-03-20] MEDS: Potassium Chloride Packet 20 MEQ PACKET 80 MEQ PO (21:41)
--- NOTE | 2024-03-20 21:42 | ED_ITS ---
HPI - Chest Pain General Chief Complaint: Chest Pain Stated Complaint: chest pain/high blood pressure Time Seen by Provider: 03/20/24 21:27 Source: patient Mode of arrival: ambulatory Limitations: no limitations History of Present Illness HPI narrative: Patient comes to the emergency room complaining of a headache, high blood pressure. Patient states that she used to take amlodipine. In her blood pressure was fairly controlled. However, patient did not like the side effects, patient states that she was having palpitations and generalized malaise, no lower extremity edema. Patient states that for a week she was told to take only hydrochlorothiazide 25 mg and 2 days ago losartan 25 mg was added. Patient states that for the last couple of days, her blood pressure has been above 170s systolic constantly, complaining of headache, chest pressure at some point but not now. Patient denies shortness of breath. Related Data Home Medications ?Medication ?Instructions ?Recorded ?Confirmed amlodipine 5 mg tablet 5 mg PO BID 10/15/23 11/02/23 diazepam 2 mg tablet 2 mg PO DAILY PRN 10/15/23 11/02/23 diclofenac sodium 75 mg 75 mg PO BID 10/15/23 11/02/23 tablet,delayed release epinephrine 0.3 mg/0.3 mL 1 mg IM DAILY 10/15/23 11/02/23 injection, auto-injector magnesium oxide 400 mg (241.3 mg 400 mg PO DAILY 10/15/23 11/02/23 magnesium) tablet sumatriptan succinate 25 mg tablet 25 mg PO Q2-4H PRN 10/15/23 11/02/23 Previous Rx's ?Medication ?Instructions ?Recorded Synthroid 150 mcg tablet 150 mcg PO DAILY #30 tabs 10/08/23 (levothyroxine) losartan 50 mg tablet 50 mg PO DAILY #60 tabs 03/20/24 Allergies Allergy/AdvReac Type Severity Reaction Status Date / Time propranolol [PROPRANOLOL] Allergy Unknown UNKNOWN Verified 03/20/24 20:52 chlorhexidine Allergy Unknown Verified 03/20/24 20:52 prednisone AdvReac Severe elevated BP Verified 03/20/24 20:52 propylthiouracil AdvReac Severe urticaria Verified 03/20/24 20:52 Review of Systems 2 Review of Systems: Constitutional : No Weight loss, No Fever, No Chills, No Night Sweats, No Fatigue, No Malaise ENT/Mouth : No Hearing loss, No Ear Pain, No Nasal Congestion, No Sinus Pain, No Hoarseness, No sore throat, No Rhinorrhea, No Swallowing Difficulty Eyes: No Eye Pain, No Swelling, No Redness, No Foreign Body, No Discharge, No Vision Changes Cardiovascular : Complaining of mild chest pressure, no dyspnea on exertion no orthopnea no shortness of breath, complaining of high blood pressure Respiratory : No Cough, No Sputum, No Wheezing, No Smoke Exposure, No Dyspnea Gastrointestinal : No Nausea, No Vomiting, No Diarrhea, No Constipation, No abdominal Pain, No Hematochezia, No Melena Genitourinary : no irregular bleeding, No Dysuria, No Urinary Frequency, No Hematuria, No Urinary Incontinence, No Urgency, No Flank Pain, No Urinary Flow Changes, No Hesitancy Musculoskeletal : No joint pain, No Myalgias, No Joint Swelling Skin : No Skin Lesions, No rash Neuro : No Weakness, No Numbness, No Paresthesias, No Loss of Consciousness, No Dizziness, No Headache Psych : No Anxiety/Panic, No Depression, No SI/HI/AH/VH, No Social Issues, Heme/Lymph: No Bruising, No Bleeding,No Lymphadenopathy Endocrine : No Polyuria, No Polydipsia, No Temperature Intolerance [facility] Past Medical History Medical History Anxiety Hypertension Disorder of sacrum Social History Social History Smoked in Last 30 Days: No Advance Directives: No Advance Directives Information Provided: No Patient : No Physical Exam 2 Vital Signs: Vital Signs: Last Vital Signs Temp 98.2 F 03/20/24 21:26 Pulse 71 03/20/24 23:50 Resp 17 03/20/24 22:46 BP 139/92 H 03/20/24 23:50 Pulse Ox 96 03/20/24 22:46 O2 Del Method Room Air 03/20/24 22:46 BMI result Body Mass Index 27.9 Const: Other: Appearance: Alert. Oriented X3. No acute distress. Eyes: Pupils equal, round and reactive to light. ENT: Pharynx normal. Neck: Normal inspection. Neck supple. No lymph nodes noted. No crepitus CVS: Normal heart rate and rhythm. Pulses normal. Normal S1 and S2 Respiratory: No respiratory distress. Breath sounds normal. No Wheezing. No rales Abdomen: Soft and nontender. No rigidity. No distention. Skin: Skin warm and dry. Normal skin color. Normal skin turgor. Extremities: No lower extremity edema. No Lacerations. No Rash Neuro: Oriented X 3. No motor deficit. No sensory deficit. Moving all extremities. No slurred speech. CN 2 through 12 grossly intact Psych: Cooperative, anxious Medications Administered Discontinued Medications Generic Name Dose Route Start Last Admin Trade Name Thompson PRN Reason Stop Dose Admin Labetalol HCl 100 mg 03/20/24 21:40 03/20/24 21:49 Labetalol Hcl 100 Mg Tablet PO 03/20/24 21:41 100 mg ONCE ONE Administration Protocol Lorazepam 2 mg 03/20/24 21:45 03/20/24 21:49 Lorazepam 1 Mg Tablet PO 03/20/24 21:46 2 mg ONCE ONE Administration Losartan Potassium 50 mg 03/20/24 23:11 03/20/24 23:16 Losartan Potassium 50 Mg Tablet PO 03/20/24 23:12 50 mg ONCE ONE Administration Protocol Potassium Chloride 80 meq 03/20/24 21:29 03/20/24 21:41 Potassium Chloride Packet 20 Meq Packet PO 03/20/24 21:30 80 meq ONCE ONE Administration Medical Decision Making Medical Decision Making MDM Narrative: -my interpretation of labs: Normal hematology, normal coagulation, chemistry shows a potassium 2.8, being repleted orally, negative troponin, negative BNP, negative serology -patient seems very anxious, given 2 mg p.o. Ativan, patient takes diazepam at home -per patient's blood pressure, patient being given 100 mg p.o. labetalol. At this time, patient requested to avoid IV but agreeable if needed My interpretation of head CT: No intracranial bleed. My interpretation of chest x-ray: No pulmonary edema -patient's blood pressure dropped from 212/159 to 162/116 with 1 dose of p.o. labetalol p.o. 100 mg. Patient was given an additional dose of losartan 50 mg. -patient's blood pressure 139/92, patient now asymptomatic. -I discussed with the patient that she should continue taking hydrochlorothiazide 25 mg daily, and then self 25 mg of losartan, go up to 50. If at home, her blood pressure for the next few days is high despite being on 50 mg, patient may go up to 100 daily in addition to the hydrochlorothiazide. Patient and agree with plan. Differential Diagnosis Differential Diagnoses: The differential diagnosis associated with the presentation includes (Hypertension, hypertensive urgency, hypertensive emergency, intracranial be) Admission/Observation Consideration of admission/observation: Escalation of care including admission/observation considered (Given patient's elevated blood pressure and symptoms, admission/observation was considered) Lab Data MDM Lab Attestation statement: I reviewed the patient's lab results. 03/20/24 20:39 03/20/24 20:39 Labs: Lab Results 03/20/24 Range/Units 20:39 WBC 6.7 (4.8-10.8) X10*3/uL RBC 5.34 (4.20-5.50) X10*6/uL Hgb 15.1 (12.0-16.0) g/dl Hct 44.5 (37.0-47.0) % MCV 83.3 (80.0-98.0) fL MCH 28.3 (27.0-33.0) pg MCHC 33.9 (31.0-35.0) g/dl RDW 13.0 (11.0-16.0) % Plt Count 280 (160-400) X10*3/uL MPV 9.4 (9.4-12.3) fL Immature Gran % (Auto) 0.1 (0.0-0.4) % Neut % (Auto) 65.8 (45-73) % Lymph % (Auto) 25.3 (20-40) % [place] % (Auto) 6.1 (2-11) % Eos % (Auto) 1.5 (0-4) % Baso % (Auto) 1.2 (0-2) % Lymph # (Auto) 1.7 (1.2-4.9) X10*3/uL [place] # (Auto) 0.4 (0.1-1.2) X10*3/uL Eos # (Auto) 0.1 (0.0-0.4) X10*3/uL Baso # (Auto) 0.1 (0.0-0.2) X10*3/uL Abs Immat Gran (auto) 0.01 (0.00-0.03) X10*3/uL Absolute Neuts (auto) 4.4 (2.0-8.3) x10*3/uL Absolute Nucleated RBC 0.000 (0.0-0.012) X10*3/uL Nucleated RBC % (auto) 0.0 (0.0-0.2) /100WBC PT 11.4 (11.1-13.3) SEC INR 0.9 (0.9-1.1) APTT 32.8 (26.0-36.8) SEC Sodium 143 (135-145) mmol/L Potassium 2.8 L* (3.3-5.1) mmol/L Chloride 104 (96-108) mmol/L Carbon Dioxide 25 (22-29) mmol/L Anion Gap 17 (12-20) BUN 20 H (9-16) mg/dL Creatinine 1.13 (0.5-1.4) mg/dL Estim Creat Clear Calc 69.1 Estimated GFR 50 Random Glucose 104 (60-115) mg/dL Calcium 10.1 (8.4-10.2) mg/dL Total Bilirubin 0.4 (0.0-1.0) mg/dL AST 24 (5-31) U/L ALT 25 (0-31) U/L Alkaline Phosphatase 128 H (39-117) U/L Troponin I High Sens 5.6 D (<3.5-17.0) ng/L B-Natriuretic Peptide 34 (<100) pg/mL Total Protein 7.7 (6.5-8.0) g/dL Albumin 4.6 (3.5-5.0) g/dL Influenza Type A (PCR) NEGATIVE (Negative) Influenza Type B (PCR) NEGATIVE (Negative) RSV RNA Qual (PCR) NEGATIVE (Negative) SARS-CoV-2 RNA (RT-PCR) NEGATIVE (Negative) Independent Interpretation I performed an independent interpretation of an: Plain X-Ray and CT Scan Radiology Impression Discussion of test interpretation with radiology: I have reviewed the radiologist's reading. Radiologist Impression: FINDINGS: There is no evidence of a recent intracranial hemorrhage or extra-axial collection. The midline structures are nondisplaced. The ventricles, cisterns, and sulci are within normal limits. There is no evidence of an intra-axial mass. There are no suspicious focal areas of abnormal brain attenuation. The jacobs-white interface is within normal limits. There is no evidence of acute territorial infarct. Moderate nonspecific patchy white matter disease with some more localized focal areas of white matter low attenuation similar to previous. The paranasal sinuses and mastoids are within normal limits. CT/CT head/brain wo IV con IMPRESSION: 1. There is no evidence of a recent intracranial hemorrhage. 2. No acute infarct. 3. Nonspecific but unchanged moderately severe white matter disease possibly microangiopathy No focal consolidation. No pneumothorax. Trachea is midline. Cardiac mediastinal silhouette is not enlarged. No large pleural effusion. Osseous structures are intact. Soft tissues are unremarkable. XR/XR chest 1V IMPRESSION: No acute cardiopulmonary process. Independent Historian Clinical information obtained from an independent historian. History obtained from or confirmed by: Spouse Chronic Conditions Patient?s care impacted by: Hypertension Critical Care Time Critical Care Time Critical Care Time: Yes Total Critical Care Time: 60 Attestation: I have personally provided critical care time. Time includes review of lab data, radiology results, discussion with consultants, and monitoring for potential decompensation. Intervention performed as documented. Discharge Plan Discharge Clinical Impression: Hypertensive urgency Patient Disposition: Home, Self-Care Instructions: Hypertensive Crisis (ED) Additional Instructions: Please follow-up with your primary care physician tomorrow. If you have any worsening or new symptoms, please return to the emergency room or call 911 Prescriptions: New losartan 50 mg tablet 50 mg PO DAILY Qty: 60 0RF No Action levothyroxine [Synthroid] 150 mcg tablet 150 mcg PO DAILY Qty: 30 0RF amlodipine 5 mg tablet 5 mg PO BID magnesium oxide 400 mg (241.3 mg magnesium) tablet 400 mg PO DAILY sumatriptan succinate 25 mg tablet 25 mg PO Q2-4H PRN diazepam 2 mg tablet 2 mg PO DAILY PRN diclofenac sodium 75 mg tablet,delayed release (DR/EC) 75 mg PO BID epinephrine 0.3 mg/0.3 mL auto-injector 1 mg IM DAILY Print Language: Polish
[2024-03-20] MEDS: LORazepam 1 MG TABLET 2 MG PO (21:49)
[2024-03-20] MEDS: Labetalol HCL 100 MG TABLET PO (21:49)
[2024-03-20] MEDS: Losartan Potassium 50 MG TABLET PO (23:16)
[2024-03-21 00:06] VITALS: BP 139/92; PULSE 71; RESP 17; TEMP 36.7; O2SAT 98
[2024-03-21 00:07] VITALS: BP 139/92; PULSE 71; RESP 17; TEMP 36.6; O2SAT 98
== END 2024-03-21 00:09 | disposition home or self-care (01) ==
PROVIDERS: Physician Assistant; Emergency Provider Emergency Medicine; PCP Internal Medicine
DX: I16.0 Hypertensive urgency (principal); I10 Essential (primary) hypertension; R07.9 Chest pain, unspecified; R51.9 Headache, unspecified; F41.9 Anxiety disorder, unspecified; Z79.899 Other long term (current) drug therapy; Z03.818 Encounter for observation for suspected exposure to other biological agents ruled out
CPT/HCPCS: 0241U; 36415; 70450; 71045; 80053; 83880; 84484; 85025; 85610; 85730; 93005; 99284; 99285

== ENCOUNTER → 2024-03-20 20:27 | Outpatient (BNV) | payer BC, SELFPAY | PROVIDERS: Emergency Provider Emergency Medicine; PCP Internal Medicine; Visit Provider Internal Medicine Cardiovascular Disease | DX: I49.9 Cardiac arrhythmia, unspecified (principal) | CPT/HCPCS: 93010 ==

== ENCOUNTER 2024-03-23 00:30 | Emergency (ER) | payer BC, SELFPAY ==
--- NOTE | 2024-03-23 | ECG_ITS ---
Test Reason : CHEST PAIN Blood Pressure : / mmHG Vent. Rate : 079 BPM Atrial Rate : 079 BPM P-R Int : 184 ms QRS Dur : 102 ms QT Int : 404 ms P-R-T Axes : 045 019 043 degrees QTc Int : 463 ms Normal sinus rhythm Incomplete right bundle branch block Borderline ECG When compared with ECG of 20-MAR-2024 20:31, No significant change was found Referred By: Generic ED Physician Electronically Signed By:Demetrio Morin
[2024-03-23 00:45] VITALS: BP 185/136; PULSE 92; RESP 12; TEMP 35.8; O2SAT 98; BMI 26.5
[2024-03-23 00:45] LABS: Hematocrit 45.2 % (37.0-47.0); Hemoglobin 15.2 g/dl (12.0-16.0); Mean Corpuscular HGB Conc 33.6 g/dl (31.0-35.0); Mean Corpuscular Hemoglobin 28.1 pg (27.0-33.0); Mean Corpuscular Volume 83.5 fL (80.0-98.0); Mean Platelet Volume 9.5 fL (9.4-12.3); Platelet Count 289 X10*3/uL (160-400); Red Blood Count 5.41 X10*6/uL (4.20-5.50); White Blood Count 6.5 X10*3/uL (4.8-10.8)
[2024-03-23 01:10] LABS: Alanine Aminotransferase 23 U/L (0-31); Albumin Level 4.9 g/dL (3.5-5.0); Alkaline Phosphatase 130 U/L (39-117); Anion Gap 17 (12-20); Aspartate Amino Transferase 23 U/L (5-31); Bilirubin Total 0.6 mg/dL (0.0-1.0); Blood Urea Nitrogen 14 mg/dL (9-16); Calcium 10.4 mg/dL (8.4-10.2); Carbon Dioxide 25 mmol/L (22-29); Chloride 104 mmol/L (96-108); Creatinine Clr Calc Pharmacy 84.7; Estimated Glomerular Filt Rate > 60; Glucose Random 117 mg/dL (60-115); Potassium 2.9 mmol/L (3.3-5.1); Sodium 143 mmol/L (135-145)
[2024-03-23 01:13] LABS: Troponin-I High Sensitivity 4.3 ng/L (<3.5-17.0)
--- NOTE | 2024-03-23 01:37 | PC.NURSE ---
PCP recently switched pt from amlodipine to losartaan due to side effects, pt seen here a few days ago for chest pains and high blood pressures, in ED told pt to increase her dose of losartaan to see if that helps in addition to HCTZ, no relief, pt went back to the amlodipine and still struggling with her blood pressures. pt returns for increased chest pains high blood pressures, increased anxiety, redness in face, decreased appetites and palpitations. speaking clear full sentences, A&Ox4.
[2024-03-23 01:42] VITALS: BP 159/108; PULSE 72; RESP 20; TEMP 36.7; O2SAT 98
--- NOTE | 2024-03-23 01:55 | ED_ITS ---
HPI - Chest Pain General Chief Complaint: Chest Pain Stated Complaint: chest pain/ elevated blood pressure Time Seen by Provider: 03/23/24 01:47 Source: patient Mode of arrival: ambulatory Limitations: no limitations History of Present Illness HPI narrative: Patient's history of anxiety increased stress at home history of hypertension for more than 20 years history of hypothyroidism after radiation treatment for Graves disease comes here for increased stress anxiety and chest pain and blood pressure elevated to 194/125 at home patient was seen here on 03/20/2024 at that time blood pressure was elevated started on losartan. Patient taking amlodipine 5 mg twice daily for more than 5 years patient has generalized chest pain nonspecific for last few days without any ischemic changes in the EKG and troponin normal worried about her fiance seizure disorder has decreased sleep after discharge she took losartan without much response 0 she taking amlodipine again 5 mg twice daily which she took earlier today patient is a history of chronic hypokalemia supposed to take potassium tablets but she has not taking Related Data Home Medications ?Medication ?Instructions ?Recorded ?Confirmed amlodipine 5 mg tablet 5 mg PO BID 10/15/23 11/02/23 diazepam 2 mg tablet 2 mg PO DAILY PRN 10/15/23 11/02/23 diclofenac sodium 75 mg 75 mg PO BID 10/15/23 11/02/23 tablet,delayed release epinephrine 0.3 mg/0.3 mL 1 mg IM DAILY 10/15/23 11/02/23 injection, auto-injector magnesium oxide 400 mg (241.3 mg 400 mg PO DAILY 10/15/23 11/02/23 magnesium) tablet sumatriptan succinate 25 mg tablet 25 mg PO Q2-4H PRN 10/15/23 11/02/23 Previous Rx's ?Medication ?Instructions ?Recorded Synthroid 150 mcg tablet 150 mcg PO DAILY #30 tabs 10/08/23 (levothyroxine) losartan 50 mg tablet 50 mg PO DAILY #60 tabs 03/20/24 lorazepam 1 mg tablet (Ativan) 1 mg PO BEDTIME PRN anxiety #20 03/23/24 tabs potassium chloride 10 mEq 10 meq PO DAILY #30 caps 03/23/24 capsule,extended release Allergies Allergy/AdvReac Type Severity Reaction Status Date / Time propranolol [PROPRANOLOL] Allergy Unknown UNKNOWN Verified 03/23/24 00:54 chlorhexidine Allergy Unknown Verified 03/23/24 00:54 prednisone AdvReac Severe elevated BP Verified 03/23/24 00:54 propylthiouracil AdvReac Severe urticaria Verified 03/23/24 00:54 Review of Systems 2 Review of Systems: Yes all other systems are reviewed and are negative [facility] Past Medical History Medical History Anxiety Hypertension Disorder of sacrum Social History Social History Smoked in Last 30 Days: No Use of substances other than those prescribed or required for medical reasons: No Advance Directives: No Advance Directives Information Provided: No Do you have a plan to hurt others: No Plan Patient : No Physical Exam 2 Vital Signs: Vital Signs: Last Vital Signs Temp 98.0 F 03/23/24 05:26 Pulse 75 03/23/24 05:26 Resp 16 03/23/24 05:26 BP 137/91 H 03/23/24 05:26 Pulse Ox 97 03/23/24 05:26 O2 Del Method Room Air 03/23/24 05:26 BMI result Body Mass Index 26.5 Appearance: Alert. Oriented X3. No acute distress. Eyes: No pallor ENT: Pharynx normal. Oral Mucosa moist Neck: Normal inspection. Neck supple. CVS: Normal heart rate and rhythm. Pulses normal. Respiratory: No respiratory distress. Equal air entry bilateral, no wheezing/rales/rhonchi Abdomen: Soft and nontender. Bowel sounds are present, Skin: Skin warm and dry. Normal skin color. Normal skin turgor. Extremities: No lower extremity edema. No calf tenderness Neuro: Oriented X 3. No motor deficit. Medications Administered Discontinued Medications Generic Name Dose Route Start Last Admin Trade Name Freq PRN Reason Stop Dose Admin Potassium Chloride 10 meq in 100 mls @ 100 mls/hr 03/23/24 02:15 03/23/24 05:00 Potassium Chloride/H20 IV 03/23/24 04:14 Infused Q1H MONIQUE Infusion Lorazepam 1 mg 03/23/24 01:58 03/23/24 02:10 Lorazepam 2 Mg/Ml Vial IVPUSH 03/23/24 01:59 1 mg STAT STA Administration Losartan Potassium 50 mg 03/23/24 02:38 03/23/24 03:51 Losartan Potassium 50 Mg Tablet PO 03/23/24 02:39 50 mg ONCE ONE Administration Protocol Potassium Bicarbonate 50 meq 03/23/24 02:06 03/23/24 03:51 Potassium Bicarbonate/Cit Ac 25 Meq Tablet.Eff PO 03/23/24 02:07 50 meq ONCE ONE Administration Medical Decision Making Medical Decision Making [facility] Narrative: Patient with increased stress with increased anxiety and hypertension which is poorly controlled improved after giving losartan in the ER along with Ativan discharge home on Ativan advised to take losartan and amlodipine daily patient received IV potassium p.o. potassium advised to take increase potassium tonight and potassium tablets Lab Data [facility] Lab Attestation statement: I reviewed the patient's lab results. 03/23/24 00:40 03/23/24 00:40 Labs: Lab Results 03/23/24 Range/Units 00:40 WBC 6.5 (4.8-10.8) X10*3/uL RBC 5.41 (4.20-5.50) X10*6/uL Hgb 15.2 (12.0-16.0) g/dl Hct 45.2 (37.0-47.0) % MCV 83.5 (80.0-98.0) fL MCH 28.1 (27.0-33.0) pg MCHC 33.6 (31.0-35.0) g/dl RDW 13.0 (11.0-16.0) % Plt Count 289 (160-400) X10*3/uL MPV 9.5 (9.4-12.3) fL Absolute Nucleated RBC 0.000 (0.0-0.012) X10*3/uL Nucleated RBC % (auto) 0.0 (0.0-0.2) /100WBC Sodium 143 (135-145) mmol/L Potassium 2.9 L* (3.3-5.1) mmol/L Chloride 104 (96-108) mmol/L Carbon Dioxide 25 (22-29) mmol/L Anion Gap 17 (12-20) BUN 14 (9-16) mg/dL Creatinine 0.90 (0.5-1.4) mg/dL Estim Creat Clear Calc 84.7 Estimated GFR > 60 Random Glucose 117 H (60-115) mg/dL Calcium 10.4 H (8.4-10.2) mg/dL Magnesium 2.3 (1.6-2.6) mg/dL Total Bilirubin 0.6 (0.0-1.0) mg/dL AST 23 (5-31) U/L ALT 23 (0-31) U/L Alkaline Phosphatase 130 H (39-117) U/L Troponin I High Sens 4.3 (<3.5-17.0) ng/L Total Protein 8.0 (6.5-8.0) g/dL Albumin 4.9 (3.5-5.0) g/dL Discharge Plan Discharge Clinical Impression: Hypertension, Chronic hypokalemia, Anxiety Patient Disposition: Home, Self-Care Instructions: Potassium Content of Foods List (ED), Hypokalemia (ED), Chronic Hypertension (ED), Anxiety (ED) Additional Instructions: Eat food containing high potassium leg bananas/orange juice Potassium tablet daily 1 tablet as advised Continue her amlodipine 10 mg daily Losartan 50 mg daily Check a potassium with PCP in 1 week Ativan for anxiety and sleep Your normal blood pressure should be less than 140/90 events persistently elevated 160/100 seek medical advice Prescriptions: New lorazepam [Ativan] 1 mg tablet 1 mg PO BEDTIME PRN (Reason: anxiety) Qty: 20 0RF potassium chloride 10 mEq capsule, extended release 10 meq PO DAILY Qty: 30 0RF No Action levothyroxine [Synthroid] 150 mcg tablet 150 mcg PO DAILY Qty: 30 0RF losartan 50 mg tablet 50 mg PO DAILY Qty: 60 0RF amlodipine 5 mg tablet 5 mg PO BID magnesium oxide 400 mg (241.3 mg magnesium) tablet 400 mg PO DAILY sumatriptan succinate 25 mg tablet 25 mg PO Q2-4H PRN diazepam 2 mg tablet 2 mg PO DAILY PRN diclofenac sodium 75 mg tablet,delayed release (DR/EC) 75 mg PO BID epinephrine 0.3 mg/0.3 mL auto-injector 1 mg IM DAILY Interventions: ED Discharge Assessment Last Done: 03/23/24 05:26 Discharge Date/Time: 03/23/24 05:42 Print Language: Citizen [place]
[2024-03-23] MEDS: LORazepam 2 MG/ML VIAL 1 MG IVPUSH (02:10)
[2024-03-23] MEDS: Potassium Chloride/H20 10 MEQ/100 ML PIGGYBACK 100 MEQ IV ×2 (02:10→03:52)
[2024-03-23 03:23] LABS: Magnesium 2.3 mg/dL (1.6-2.6)
[2024-03-23 03:51] VITALS: BP 133/87
[2024-03-23] MEDS: Potassium Bicarbonate/Cit AC 25 MEQ TABLET.EFF 50 MEQ PO (03:51)
[2024-03-23] MEDS: Losartan Potassium 50 MG TABLET PO (03:51)
[2024-03-23 05:26] VITALS: BP 137/91; PULSE 75; RESP 16; TEMP 36.7; O2SAT 97
== END 2024-03-23 05:42 | disposition home or self-care (01) ==
PROVIDERS: Emergency Provider Internal Medicine; PCP Internal Medicine
DX: E87.6 Hypokalemia (principal); R07.89 Other chest pain; I10 Essential (primary) hypertension; F41.9 Anxiety disorder, unspecified; Z79.899 Other long term (current) drug therapy
CPT/HCPCS: 36415; 80053; 83735; 84484; 85027; 93005; 96365; 96366; 96375; 99285; J2060; J3480

== ENCOUNTER → 2024-03-23 00:33 | Outpatient (BNV) | payer BC, SELFPAY | PROVIDERS: Emergency Provider Internal Medicine; PCP Internal Medicine; Visit Provider Internal Medicine Cardiovascular Disease | DX: R07.9 Chest pain, unspecified (principal) | CPT/HCPCS: 93010 ==

== ENCOUNTER 2024-05-19 03:19 | Emergency (ER) | payer BC, SELFPAY ==
[2024-05-19 03:40] VITALS: BP 172/109; PULSE 74; RESP 20; TEMP 36.9; O2SAT 100; BMI 26.5
--- NOTE | 2024-05-19 03:44 | ED.GENADULT ---
HPI - General Adult General Chief complaint: General Medical Stated complaint: blood pressure high, dizzy Time Seen by Provider: 05/19/24 03:44 History of Present Illness ED Provider: Aimee VALLE narrative: The patient is a 58-year-old female who has had problems with blood pressure for a long time. She has also had problems with antihypertensive medication side effects. The patient says that she has been on atenolol for a long time but ultimately her heart rate tended to be quite low. She was then on lisinopril but developed a significant cough. She was then on but developed a variety of symptoms after increasing her dose from 50 mg daily to 100 mg daily. Recently she has been on amlodipine 2.5 mg twice a day and more recently hydrochlorothiazide 25 mg daily. She was also recently prescribed hydralazine to use on an as-needed basis. Tonight the patient woke up with palpitations and a sense of a racing heartbeat. She took her blood pressure and it was 179/123. She was quite anxious. She took a dose of lorazepam and a dose of 25 mg of hydralazine but did not really feel better and came to the emergency room. The patient is a nonsmoker. Related Data Home Medications ?Medication ?Instructions ?Recorded ?Confirmed amlodipine 5 mg tablet 5 mg PO BID 10/15/23 11/02/23 diazepam 2 mg tablet 2 mg PO DAILY PRN 10/15/23 11/02/23 diclofenac sodium 75 mg 75 mg PO BID 10/15/23 11/02/23 tablet,delayed release epinephrine 0.3 mg/0.3 mL 1 mg IM DAILY 10/15/23 11/02/23 injection, auto-injector magnesium oxide 400 mg (241.3 mg 400 mg PO DAILY 10/15/23 11/02/23 magnesium) tablet sumatriptan succinate 25 mg tablet 25 mg PO Q2-4H PRN 10/15/23 11/02/23 Previous Rx's ?Medication ?Instructions ?Recorded Synthroid 150 mcg tablet 150 mcg PO DAILY #30 tabs 10/08/23 (levothyroxine) losartan 50 mg tablet 50 mg PO DAILY #60 tabs 03/20/24 lorazepam 1 mg tablet (Ativan) 1 mg PO BEDTIME PRN anxiety #20 03/23/24 tabs potassium chloride 10 mEq 10 meq PO DAILY #30 caps 03/23/24 capsule,extended release Allergies Allergy/AdvReac Type Severity Reaction Status Date / Time propranolol [PROPRANOLOL] Allergy Unknown UNKNOWN Verified 05/19/24 03:44 chlorhexidine Allergy Unknown Verified 05/19/24 03:44 prednisone AdvReac Severe elevated BP Verified 05/19/24 03:44 propylthiouracil AdvReac Severe urticaria Verified 05/19/24 03:44 Review of Systems Review of Systems: Yes all other systems are reviewed and are negative [facility] Past Medical History Medical History Anxiety Hypertension Disorder of sacrum Social History Social History Advance Directives: No Advance Directives Information Provided: No Physical Exam ED Vital Signs: Vital Signs - 24 hr 05/19/24 03:40 05/19/24 05:32 05/19/24 05:59 Temperature 98.4 F 98.7 F Pulse Rate 74 80 80 Respiratory Rate 20 13 13 Blood Pressure 172/109 H 135/92 H 135/92 H Pulse Oximetry 100 97 97 Oxygen Delivery Method Room Air Room Air Room Air BMI result Body Mass Index 26.5 Const Other: The patient is awake, alert, pleasant, cooperative. She has a an anxious affect but does not seem in distress otherwise. HENMT Other: Face is symmetrical. Mucous membranes moist. Eyes Other: Pupils are round equal, conjunctivae are clear Neck Other: No JVD Resp Effort & Inspection: normal respiratory effort Auscultation: clear to auscultation bilaterally Cardio Other: No murmur Rate: regular rate Rhythm: regular rhythm Heart sounds: S1 normal heart sound present and S2 normal heart sound present GI Other: Abdomen is soft Skin Other: Skin is dry and unremarkable Neuro Other: The patient is awake and alert with a normal mental status. Cranial nerves are grossly intact. She moves her extremities symmetrically and seems grossly neurologically intact. Extrem Other: No significant peripheral edema. No calf swelling or tenderness. Medications Administered Discontinued Medications Generic Name Dose Route Start Last Admin Trade Name Freq PRN Reason Stop Dose Admin Clonidine HCl 0.1 mg 05/19/24 04:06 05/19/24 04:17 Clonidine Hcl 0.1 Mg Tablet PO 05/19/24 04:07 0.1 mg ONCE ONE Administration Protocol Potassium Chloride 40 meq 05/19/24 05:24 05/19/24 05:29 Potassium Chloride Er 20 Meq Tab.Er.Prt PO 05/19/24 05:25 40 meq ONCE ONE Administration Medical Decision Making Medical Decision Making [facility] Narrative: The patient is a 58-year-old woman who has had longstanding hypertension. She seems to be having difficulty with maintaining a tolerable antihypertensive regimen. She has been changed on many different agents. She presents tonight because she woke up with palpitations and her blood pressure at home was high. Her initial blood pressure here [facility] was 172/109. She had a normal neurological exam. She does not really describe an acute coronary syndrome. Her EKG is nonischemic. Labs are unremarkable aside from a potassium 3.0. She is on hydrochlorothiazide. She was given 40 mEq of oral potassium. She was given 0.1 mg of clonidine. Her blood pressure improved and came down to 135/92. She felt better. She felt comfortable going home to contact your PCP about ongoing blood pressure management. Lab Data 05/19/24 04:44 05/19/24 04:44 Labs: Lab Results 05/19/24 Range/Units 04:44 WBC 4.2 L (4.8-10.8) X10*3/uL RBC 5.12 (4.20-5.50) X10*6/uL Hgb 14.6 (12.0-16.0) g/dl Hct 41.9 (37.0-47.0) % MCV 81.8 (80.0-98.0) fL MCH 28.5 (27.0-33.0) pg MCHC 34.8 (31.0-35.0) g/dl RDW 12.7 (11.0-16.0) % Plt Count 245 (160-400) X10*3/uL MPV 9.5 (9.4-12.3) fL Immature Gran % (Auto) 0.2 (0.0-0.4) % Neut % (Auto) 64.5 (45-73) % Lymph % (Auto) 23.3 (20-40) % Grainger % (Auto) 8.9 (2-11) % Eos % (Auto) 1.4 (0-4) % Baso % (Auto) 1.7 (0-2) % Lymph # (Auto) 1.0 L (1.2-4.9) X10*3/uL Grainger # (Auto) 0.4 (0.1-1.2) X10*3/uL Eos # (Auto) 0.1 (0.0-0.4) X10*3/uL Baso # (Auto) 0.1 (0.0-0.2) X10*3/uL Abs Immat Gran (auto) 0.01 (0.00-0.03) X10*3/uL Absolute Neuts (auto) 2.7 (2.0-8.3) x10*3/uL Absolute Nucleated RBC 0.000 (0.0-0.012) X10*3/uL Nucleated RBC % (auto) 0.0 (0.0-0.2) /100WBC Sodium 144 (135-145) mmol/L Potassium 3.0 L (3.3-5.1) mmol/L Chloride 109 H (96-108) mmol/L Carbon Dioxide 25 (22-29) mmol/L Anion Gap 13 (12-20) BUN 13 (9-16) mg/dL Creatinine 0.88 (0.5-1.4) mg/dL Estim Creat Clear Calc 86.7 Estimated GFR > 60 Random Glucose 114 (60-115) mg/dL Calcium 9.5 D (8.4-10.2) mg/dL Magnesium 2.2 (1.6-2.6) mg/dL Total Bilirubin 0.6 (0.0-1.0) mg/dL Direct Bilirubin 0.2 (0.0-0.5) mg/dL AST 24 (5-31) U/L ALT 20 (0-31) U/L Alkaline Phosphatase 121 H (39-117) U/L Troponin I High Sens 5.2 (<3.5-17.0) ng/L Total Protein 7.2 (6.5-8.0) g/dL Albumin 4.4 (3.5-5.0) g/dL Independent Interpretation I performed an independent interpretation of an: EKG Interpretation: EKG at 04:20 shows normal sinus rhythm at 74 beats per minute. No definite acute ischemic changes. Discharge Plan Discharge Clinical Impression: Hypertension, Hypokalemia Patient Disposition: Home, Self-Care Instructions: Potassium Content of Foods List (ED) Additional Instructions: Please try to contact your regular doctor's office today to discuss your blood pressure regimen. I think the idea of returning to atenolol sounds like a reasonable idea. I would discuss this idea with your regular doctor. Please continue to eat a potassium rich diet. Return to the emergency room if significantly worse. Prescriptions: No Action levothyroxine [Synthroid] 150 mcg tablet 150 mcg PO DAILY Qty: 30 0RF lorazepam [Ativan] 1 mg tablet 1 mg PO BEDTIME PRN (Reason: anxiety) Qty: 20 0RF potassium chloride 10 mEq capsule, extended release 10 meq PO DAILY Qty: 30 0RF losartan 50 mg tablet 50 mg PO DAILY Qty: 60 0RF amlodipine 5 mg tablet 5 mg PO BID magnesium oxide 400 mg (241.3 mg magnesium) tablet 400 mg PO DAILY sumatriptan succinate 25 mg tablet 25 mg PO Q2-4H PRN diazepam 2 mg tablet 2 mg PO DAILY PRN diclofenac sodium 75 mg tablet,delayed release (DR/EC) 75 mg PO BID epinephrine 0.3 mg/0.3 mL auto-injector 1 mg IM DAILY Referrals: Vitor Mackay MD [Primary Care Provider] - (hypertension, hypokalemia) Interventions: ED Discharge Assessment Last Done: 05/19/24 05:59 Discharge Date/Time: 05/19/24 05:59 Print Language: Surinamese
--- NOTE | 2024-05-19 04:06 | ECG_ITS ---
Test Reason : PALPITATIONS Blood Pressure : / mmHG Vent. Rate : 074 BPM Atrial Rate : 074 BPM P-R Int : 198 ms QRS Dur : 102 ms QT Int : 430 ms P-R-T Axes : 048 026 075 degrees QTc Int : 477 ms Normal sinus rhythm Possible Left atrial enlargement Incomplete right bundle branch block Nonspecific ST abnormality Abnormal ECG When compared with ECG of 23-MAR-2024 00:33, No significant change was found Referred By: Maximus Yu Electronically Signed By:Demetrio Morin
[2024-05-19] MEDS: cloNIDine HCL 0.1 MG TABLET PO (04:17)
[2024-05-19 04:48] LABS: Basophils Absolute Auto 0.1 X10*3/uL (0.0-0.2); Basophils Percent Auto 1.7 % (0-2); Eosinophils Absolute Auto 0.1 X10*3/uL (0.0-0.4); Eosinophils Percent Auto 1.4 % (0-4); Hematocrit 41.9 % (37.0-47.0); Hemoglobin 14.6 g/dl (12.0-16.0); Imm Gran Abs Auto 0.01 X10*3/uL (0.00-0.03); Imm Gran Pct Auto 0.2 % (0.0-0.4); Lymphocytes Percent Auto 23.3 % (20-40); MANUAL DIFF FLAG NO; Mean Corpuscular HGB Conc 34.8 g/dl (31.0-35.0); Mean Corpuscular Hemoglobin 28.5 pg (27.0-33.0); Mean Corpuscular Volume 81.8 fL (80.0-98.0); Mean Platelet Volume 9.5 fL (9.4-12.3); Monocytes Absolute Auto 0.4 X10*3/uL (0.1-1.2); Monocytes Percent Auto 8.9 % (2-11); Neutrophils Absolute Auto 2.7 x10*3/uL (2.0-8.3); Neutrophils Percent Auto 64.5 % (45-73); Platelet Count 245 X10*3/uL (160-400); Red Blood Count 5.12 X10*6/uL (4.20-5.50); Red Cell Distribution Width 12.7 % (11.0-16.0); White Blood Count 4.2 X10*3/uL (4.8-10.8)
[2024-05-19 05:10] LABS: Troponin-I High Sensitivity 5.2 ng/L (<3.5-17.0)
[2024-05-19 05:16] LABS: Alanine Aminotransferase 20 U/L (0-31); Albumin Level 4.4 g/dL (3.5-5.0); Anion Gap 13 (12-20); Aspartate Amino Transferase 24 U/L (5-31); Bilirubin Direct 0.2 mg/dL (0.0-0.5); Bilirubin Total 0.6 mg/dL (0.0-1.0); Blood Urea Nitrogen 13 mg/dL (9-16); Calcium 9.5 mg/dL (8.4-10.2); Carbon Dioxide 25 mmol/L (22-29); Chloride 109 mmol/L (96-108); Creatinine Clr Calc Pharmacy 86.7; Estimated Glomerular Filt Rate > 60; Glucose Random 114 mg/dL (60-115); Magnesium 2.2 mg/dL (1.6-2.6); Sodium 144 mmol/L (135-145); Total Protein 7.2 g/dL (6.5-8.0)
[2024-05-19 05:18] LABS: Alkaline Phosphatase 121 U/L (39-117)
[2024-05-19] MEDS: Potassium Chloride ER 20 MEQ TAB.ER.PRT 40 MEQ PO (05:29)
[2024-05-19 05:32] VITALS: BP 135/92; PULSE 80; RESP 13; O2SAT 97
[2024-05-19 05:59] VITALS: BP 135/92; PULSE 80; RESP 13; TEMP 37.1; O2SAT 97
== END 2024-05-19 05:59 | disposition home or self-care (01) ==
PROVIDERS: Emergency Provider Emergency Medicine; PCP Internal Medicine
DX: E87.5 Hyperkalemia (principal); R00.2 Palpitations; I45.10 Unspecified right bundle-branch block; I10 Essential (primary) hypertension; Z79.899 Other long term (current) drug therapy
CPT/HCPCS: 36415; 80048; 80076; 83735; 84484; 85025; 93005; 99283

== ENCOUNTER → 2024-05-19 04:06 | Outpatient (BNV) | payer BC, SELFPAY | PROVIDERS: Emergency Provider Emergency Medicine; PCP Internal Medicine; Visit Provider Internal Medicine Cardiovascular Disease | DX: R00.2 Palpitations (principal); I45.19 Other right bundle-branch block; R94.31 Abnormal electrocardiogram [ECG] [EKG] | CPT/HCPCS: 93010 ==

== ENCOUNTER 2024-05-24 00:37 | Emergency (ER) | payer BC, SELFPAY ==
--- NOTE | 2024-05-24 | ECG_ITS ---
Test Reason : CHEST PAIN Blood Pressure : / mmHG Vent. Rate : 050 BPM Atrial Rate : 050 BPM P-R Int : 192 ms QRS Dur : 102 ms QT Int : 438 ms P-R-T Axes : 042 011 053 degrees QTc Int : 399 ms Sinus bradycardia Otherwise normal ECG When compared with ECG of 19-MAY-2024 04:20, Vent. rate has decreased BY 24 BPM Nonspecific T wave abnormality no longer evident in Anterior leads QT has shortened Referred By: Generic ED Physician Electronically Signed By:Demetrio Morin
[2024-05-24 00:51] VITALS: BP 184/111; PULSE 52; RESP 18; TEMP 36.7; O2SAT 99; BMI 26.5
[2024-05-24 01:19] LABS: MANUAL DIFF FLAG NO
[2024-05-24 01:20] LABS: Basophils Absolute Auto 0.1 X10*3/uL (0.0-0.2); Basophils Percent Auto 1.3 % (0-2); Eosinophils Absolute Auto 0.2 X10*3/uL (0.0-0.4); Eosinophils Percent Auto 3.3 % (0-4); Hematocrit 42.1 % (37.0-47.0); Hemoglobin 14.3 g/dl (12.0-16.0); Imm Gran Abs Auto 0.01 X10*3/uL (0.00-0.03); Imm Gran Pct Auto 0.2 % (0.0-0.4); Lymphocytes Absolute Auto 1.8 X10*3/uL (1.2-4.9); Lymphocytes Percent Auto 32.8 % (20-40); Mean Corpuscular Hemoglobin 28.3 pg (27.0-33.0); Mean Corpuscular Volume 83.2 fL (80.0-98.0); Mean Platelet Volume 9.8 fL (9.4-12.3); Monocytes Absolute Auto 0.4 X10*3/uL (0.1-1.2); Monocytes Percent Auto 7.8 % (2-11); Neutrophils Absolute Auto 2.9 x10*3/uL (2.0-8.3); Neutrophils Percent Auto 54.6 % (45-73); Platelet Count 272 X10*3/uL (160-400); Red Blood Count 5.06 X10*6/uL (4.20-5.50); Red Cell Distribution Width 12.8 % (11.0-16.0); White Blood Count 5.4 X10*3/uL (4.8-10.8)
[2024-05-24 01:36] LABS: Alanine Aminotransferase 24 U/L (0-31); Albumin Level 4.5 g/dL (3.5-5.0); Alkaline Phosphatase 115 U/L (39-117); Anion Gap 11 (12-20); Aspartate Amino Transferase 24 U/L (5-31); Bilirubin Total 0.5 mg/dL (0.0-1.0); Blood Urea Nitrogen 12 mg/dL (9-16); Calcium 9.6 mg/dL (8.4-10.2); Carbon Dioxide 26 mmol/L (22-29); Chloride 109 mmol/L (96-108); Creatinine Clr Calc Pharmacy 90.8; Estimated Glomerular Filt Rate > 60; Glucose Random 99 mg/dL (60-115); Potassium 3.1 mmol/L (3.3-5.1); Sodium 143 mmol/L (135-145); Total Protein 7.2 g/dL (6.5-8.0)
[2024-05-24 01:43] LABS: Troponin-I High Sensitivity 7.7 ng/L (<3.5-17.0)
[2024-05-24 03:16] VITALS: BP 179/108; PULSE 51; RESP 16; TEMP 36.7; O2SAT 100
[2024-05-24 04:50] VITALS: BP 179/106; PULSE 47; RESP 14; TEMP 36.6; O2SAT 100
--- NOTE | 2024-05-24 05:06 | PC.NURSE ---
pt zuleyma grewal, at this time, pt c/o of blood pressure problems, states her doctor is expermenting with her meds and it is causing her stomach problems. Pt also, states, that she is depressed, denies SI/HI. Denies any cp at this time, but states that she has had cp, with it radiating down her left arm.
[2024-05-24 05:25] LABS: Troponin-I High Sensitivity 7.7 ng/L (<3.5-17.0)
--- NOTE | 2024-05-24 05:34 | PC.NURSE ---
Pt states, she is concerned about her heartrate, going down into the 40's. Pt double her dose of Atenol on Sunday, because her BP was in the 170's. Informed pt, not to take extra medication.
[2024-05-24 06:23] VITALS: BP 159/99; PULSE 50; RESP 14; TEMP 36.7; O2SAT 99
--- NOTE | 2024-05-24 07:03 | ED.GENADULT ---
HPI - General Adult General Chief complaint: General Medical Stated complaint: high blood pressure Time Seen by Provider: 05/24/24 07:03 History of Present Illness HPI narrative: Patient is a 58-year-old female reported feeling unwell despite having multiple medication changes for her hypertension. Patient was noted to blood pressure of 178/125 home. Baseline patient has was in the emergency department on the . At that time was given dose of clonidine. Patient supposed to take 50 mg of atenolol and 5 mg of amlodipine she did not like the amlodipine eloped decided to take herself off the amlodipine. Last night she took an extra dose of 50 mg atenolol. Came to the ED. Was noted to have initial blood pressure 184/111. Labs were drawn overnight. Patient already had 2 sets of cardiac enzymes when I arrived. On my arrival patient's blood pressure is now 159/99. She has no symptoms. No fever no chills. No diaphoresis. No focal weakness. Related Data Home Medications ?Medication ?Instructions ?Recorded ?Confirmed amlodipine 5 mg tablet 5 mg PO BID 10/15/23 11/02/23 diazepam 2 mg tablet 2 mg PO DAILY PRN 10/15/23 11/02/23 diclofenac sodium 75 mg 75 mg PO BID 10/15/23 11/02/23 tablet,delayed release epinephrine 0.3 mg/0.3 mL 1 mg IM DAILY 10/15/23 11/02/23 injection, auto-injector magnesium oxide 400 mg (241.3 mg 400 mg PO DAILY 10/15/23 11/02/23 magnesium) tablet sumatriptan succinate 25 mg tablet 25 mg PO Q2-4H PRN 10/15/23 11/02/23 Previous Rx's ?Medication ?Instructions ?Recorded Synthroid 150 mcg tablet 150 mcg PO DAILY #30 tabs 10/08/23 (levothyroxine) losartan 50 mg tablet 50 mg PO DAILY #60 tabs 03/20/24 lorazepam 1 mg tablet (Ativan) 1 mg PO BEDTIME PRN anxiety #20 03/23/24 tabs potassium chloride 10 mEq 10 meq PO DAILY #30 caps 03/23/24 capsule,extended release Allergies Allergy/AdvReac Type Severity Reaction Status Date / Time propranolol [PROPRANOLOL] Allergy Unknown UNKNOWN Verified 05/24/24 00:55 chlorhexidine Allergy Unknown Verified 05/24/24 00:55 prednisone AdvReac Severe elevated BP Verified 05/24/24 00:55 propylthiouracil AdvReac Severe urticaria Verified 05/24/24 00:55 Review of Systems Review of Systems: No fever no chills no chest pain or diaphoresis Yes all other systems are reviewed and are negative [facility] Past Medical History Attestation statement: The following information was validated with the patient. Medical History Anxiety Hypertension Disorder of sacrum Social History Social History Smoked in Last 30 Days: No Use of substances other than those prescribed or required for medical reasons: No Advance Directives: No Advance Directives Information Provided: Yes Physical Exam ED Vital Signs: Vital Signs - 24 hr 05/24/24 00:51 05/24/24 03:16 05/24/24 04:50 Temperature 98.0 F 98.1 F 97.8 F Pulse Rate 52 51 47 L Respiratory Rate 18 16 14 Blood Pressure 184/111 H 179/108 H 179/106 H Pulse Oximetry 99 100 100 Oxygen Delivery Method Room Air Room Air Room Air 05/24/24 06:23 Temperature 98.0 F Pulse Rate 50 Respiratory Rate 14 Blood Pressure 159/99 H Pulse Oximetry 99 Oxygen Delivery Method Room Air BMI result Body Mass Index 26.5 Appearance: Alert. Oriented X3. No acute distress. Eyes: Pupils equal, round and reactive to light. ENT: Pharynx normal. Neck: Normal inspection. Neck supple. No lymph nodes noted. No crepitus CVS: Normal heart rate and rhythm. Pulses normal. Normal S1 and S2 Respiratory: No respiratory distress. Breath sounds normal. No Wheezing. No rales Abdomen: Soft and nontender. No rigidity. No distention. good BS x4 Skin: Skin warm and dry. Normal skin color. Normal skin turgor. Extremities: No lower extremity edema. Neurovascular intact to all extremities. No Lacerations. No Rash Neuro: Oriented X 3. No motor deficit. No sensory deficit. Moving all extermities. No slurred speech Medical Decision Making Medical Decision Making MDM Narrative: Patient's blood pressure is 184/111 initially. On recheck just now patient's blood pressure is 159/99. Electrolytes already done they were normal normal kidney function. My interpretation of patient's EKG is that is unchanged from previous. Two sets of cardiac enzymes was done prior to my arrival they were both 7.7 normal. She has in no acute distress. Explained to patient the need to take the regimen as prescribed which includes the amlodipine and the atenolol. She should change her medication only with the assistance of his primary physician. Patient states understanding. In stable condition. Differential Diagnosis Differential Diagnoses: The differential diagnosis associated with the presentation includes Hypertensive urgency hypertensive emergency Lab Data MDM Lab Attestation statement: I reviewed the patient's lab results. 05/24/24 01:14 05/24/24 01:14 Labs: Lab Results 05/24/24 05/24/24 Range/Units 01:14 04:57 WBC 5.4 (4.8-10.8) X10*3/uL RBC 5.06 (4.20-5.50) X10*6/uL Hgb 14.3 (12.0-16.0) g/dl Hct 42.1 (37.0-47.0) % MCV 83.2 (80.0-98.0) fL MCH 28.3 (27.0-33.0) pg MCHC 34.0 (31.0-35.0) g/dl RDW 12.8 (11.0-16.0) % Plt Count 272 (160-400) X10*3/uL MPV 9.8 (9.4-12.3) fL Immature Gran % (Auto) 0.2 (0.0-0.4) % Neut % (Auto) 54.6 (45-73) % Lymph % (Auto) 32.8 (20-40) % Harlan % (Auto) 7.8 (2-11) % Eos % (Auto) 3.3 (0-4) % Baso % (Auto) 1.3 (0-2) % Lymph # (Auto) 1.8 (1.2-4.9) X10*3/uL Harlan # (Auto) 0.4 (0.1-1.2) X10*3/uL Eos # (Auto) 0.2 (0.0-0.4) X10*3/uL Baso # (Auto) 0.1 (0.0-0.2) X10*3/uL Abs Immat Gran (auto) 0.01 (0.00-0.03) X10*3/uL Absolute Neuts (auto) 2.9 (2.0-8.3) x10*3/uL Absolute Nucleated RBC 0.000 (0.0-0.012) X10*3/uL Nucleated RBC % (auto) 0.0 (0.0-0.2) /100WBC Sodium 143 (135-145) mmol/L Potassium 3.1 L (3.3-5.1) mmol/L Chloride 109 H (96-108) mmol/L Carbon Dioxide 26 (22-29) mmol/L Anion Gap 11 L (12-20) BUN 12 (9-16) mg/dL Creatinine 0.84 (0.5-1.4) mg/dL Estim Creat Clear Calc 90.8 Estimated GFR > 60 Random Glucose 99 (60-115) mg/dL Calcium 9.6 (8.4-10.2) mg/dL Total Bilirubin 0.5 (0.0-1.0) mg/dL AST 24 (5-31) U/L ALT 24 (0-31) U/L Alkaline Phosphatase 115 (39-117) U/L Troponin I High Sens 7.7 7.7 (<3.5-17.0) ng/L Total Protein 7.2 (6.5-8.0) g/dL Albumin 4.5 (3.5-5.0) g/dL Independent Interpretation I performed an independent interpretation of an: EKG (Sinus heart rate is 50 GA QRS QTC within normal limits is no acute ST segment elevation.) Independent Historian Clinical information obtained from an independent historian. History obtained from or confirmed by: Spouse Chronic Conditions Patient?s care impacted by: Hypertension Discharge Plan Discharge Clinical Impression: Hypertension Patient Disposition: Home, Self-Care Instructions: Hypertension (ED) Prescriptions: No Action levothyroxine [Synthroid] 150 mcg tablet 150 mcg PO DAILY Qty: 30 0RF lorazepam [Ativan] 1 mg tablet 1 mg PO BEDTIME PRN (Reason: anxiety) Qty: 20 0RF potassium chloride 10 mEq capsule, extended release 10 meq PO DAILY Qty: 30 0RF losartan 50 mg tablet 50 mg PO DAILY Qty: 60 0RF amlodipine 5 mg tablet 5 mg PO BID magnesium oxide 400 mg (241.3 mg magnesium) tablet 400 mg PO DAILY sumatriptan succinate 25 mg tablet 25 mg PO Q2-4H PRN diazepam 2 mg tablet 2 mg PO DAILY PRN diclofenac sodium 75 mg tablet,delayed release (DR/EC) 75 mg PO BID epinephrine 0.3 mg/0.3 mL auto-injector 1 mg IM DAILY Referrals: Vitor Mackay MD [Primary Care Provider] - (Please schedule blood pressure rechecked on Sunday.) Print Language: Chinese
[2024-05-24 07:54] VITALS: BP 136/81; PULSE 78; RESP 18; TEMP 36.8; O2SAT 97
== END 2024-05-24 07:56 | disposition home or self-care (01) ==
PROVIDERS: Emergency Provider Emergency Medicine Emergency Medical Services; PCP Internal Medicine
DX: I10 Essential (primary) hypertension (principal); Z79.899 Other long term (current) drug therapy
CPT/HCPCS: 36415; 80053; 84484; 85025; 93005; 99283; 99284

== ENCOUNTER → 2024-05-24 01:02 | Outpatient (BNV) | payer BC, SELFPAY | PROVIDERS: Emergency Provider Emergency Medicine Emergency Medical Services; PCP Internal Medicine; Visit Provider Internal Medicine Cardiovascular Disease | DX: R00.1 Bradycardia, unspecified (principal); I45.19 Other right bundle-branch block; R94.31 Abnormal electrocardiogram [ECG] [EKG] | CPT/HCPCS: 93010 ==

== ENCOUNTER 2024-05-26 22:21 | Emergency (ER) | payer BC, SELFPAY ==
--- NOTE | 2024-05-26 | ECG_ITS ---
Test Reason : BRADYCARDIA Blood Pressure : / mmHG Vent. Rate : 048 BPM Atrial Rate : 048 BPM P-R Int : 188 ms QRS Dur : 100 ms QT Int : 478 ms P-R-T Axes : 042 013 043 degrees QTc Int : 427 ms Sinus bradycardia Incomplete right bundle branch block Borderline ECG When compared with ECG of 24-MAY-2024 01:02, No significant change was found Referred By: Generic ED Physician Electronically Signed By:AFUA TORRES MD
[2024-05-26 22:29] VITALS: BP 177/109; PULSE 50; RESP 17; TEMP 36.4; O2SAT 99; BMI 26.5
--- NOTE | 2024-05-26 22:40 | PC.NURSE ---
pt ambulatory with steady gait from WR to ed4 reporting swelling/redness of RUE after wasp sting today, old wasp sting from 1 wk ago to L. forearm improving in swelling/redness. pt denies cp/sob/n/v/d. also c/o bradycardia onset today, was seen at [facility] who had pt stop atenolol last dose this AM. pt placed on heart monitor hr 43-[address] Hankins made aware. bp 161/98, pt reports has been f/u with pcp to get bp wnl, currently taking amlodipine. airway patent pt is axox4 speaking full clear sentences. awaiting primary eval by ed provider.
--- NOTE | 2024-05-26 23:38 | ED.ALLEREA ---
HPI - Allergic Reaction General Chief complaint: Allergic Reaction Stated complaint: stung by bee, swollen R arm, no known allergy Time Seen by Provider: 05/26/24 23:28 Source: patient and family Mode of arrival: ambulatory Limitations: no limitations History of Present Illness ED Provider: AYANNA VALLE narrative: 58 yo female with PMH of what sounds like severe anxiety and HTN but does not like meds she has tried including losartan, lisinopril, atenolol and amlodipine it sounds like she weans herself down or off. She was weaned down from atenolol at [facility] today given HR in 40s but BP is normal. She did take a dose today. She went home after long stay in ER then got stung by wasp she is very anxious. NO airway swelling, localized swelling is very mild. She worries she won't be able to sleep and mentions ativan has helped in the past. MD complaint: allergic reaction and other (anxiety) Onset (ago): hour(s) (few) Exposure: insect bite Symptoms: rash and itching Severity: mild Treatment prior to arrival: none Previous Allergic Reaction History: none Related Data Home Medications ?Medication ?Instructions ?Recorded ?Confirmed amlodipine 5 mg tablet 5 mg PO BID 10/15/23 11/02/23 diazepam 2 mg tablet 2 mg PO DAILY PRN 10/15/23 11/02/23 diclofenac sodium 75 mg 75 mg PO BID 10/15/23 11/02/23 tablet,delayed release epinephrine 0.3 mg/0.3 mL 1 mg IM DAILY 10/15/23 11/02/23 injection, auto-injector magnesium oxide 400 mg (241.3 mg 400 mg PO DAILY 10/15/23 11/02/23 magnesium) tablet sumatriptan succinate 25 mg tablet 25 mg PO Q2-4H PRN 10/15/23 11/02/23 Previous Rx's ?Medication ?Instructions ?Recorded Synthroid 150 mcg tablet 150 mcg PO DAILY #30 tabs 10/08/23 (levothyroxine) losartan 50 mg tablet 50 mg PO DAILY #60 tabs 03/20/24 lorazepam 1 mg tablet (Ativan) 1 mg PO BEDTIME PRN anxiety #20 03/23/24 tabs potassium chloride 10 mEq 10 meq PO DAILY #30 caps 03/23/24 capsule,extended release lorazepam 0.5 mg tablet (Ativan) 0.5 mg PO BEDTIME PRN anxiety #5 05/27/24 tabs Allergies Allergy/AdvReac Type Severity Reaction Status Date / Time propranolol [PROPRANOLOL] Allergy Unknown UNKNOWN Verified 05/26/24 22:36 chlorhexidine Allergy Unknown Verified 05/26/24 22:36 prednisone AdvReac Severe elevated BP Verified 05/26/24 22:36 propylthiouracil AdvReac Severe urticaria Verified 05/26/24 22:36 Review of Systems Review of Systems: Constitutional : No Fever, No Chills ENT/Mouth : No Ear Pain, No Nasal Congestion, No sore throat Eyes: No Eye Pain, No Swelling, No Redness Cardiovascular : No Chest Pain, No SOB Respiratory : No Cough, No Sputum, No Dyspnea Gastrointestinal : No Nausea, No Vomiting, No Diarrhea, No Hematochezia, No Melena Genitourinary : No Dysuria, No Urinary Frequency, No Hematuria Musculoskeletal : No Myalgias Skin : pos Skin Lesions, No rash Neuro : No Weakness, No Numbness, No Paresthesias, No Dizziness, No Headache Psych : positive Anxiety, no Depression, no SI/HI Heme/Lymph: No Lymphadenopathy Endocrine : No Polyuria, No Polydipsia All other systems reviewed and are negative [facility] Past Medical History Attestation statement: The following information was validated with the patient. Source: old records reviewed Medical History Anxiety Hypertension Disorder of sacrum Social History Social History (Updated 05/27/24 @ 00:07 by Lana Hankins DO) Patient Tobacco Use Status: Never used Tobacco Physical Exam ED Vital Signs: Vital Signs - 24 hr 05/26/24 22:29 Temperature 97.6 F Pulse Rate 50 Respiratory Rate 17 Blood Pressure 177/109 H Pulse Oximetry 99 Oxygen Delivery Method Room Air BMI result Body Mass Index 26.5 Appearance: Alert. Oriented X3. No acute distress. anxious Eyes: Pupils equal, round and reactive to light. ENT: Pharynx normal. no angioedema no stridor Neck: Normal inspection. Neck supple. CVS: Normal heart rate and rhythm. Pulses normal. Respiratory: No respiratory distress. Breath sounds normal. Abdomen: Soft and nontender. Skin: Skin warm and dry. Normal skin color. Normal skin turgor. Extremities: No lower extremity edema. R elbow no obvious stinger there is swelling noted and erythema mild swelling distal NV intact Neuro: Oriented X 3. No motor deficit. No sensory deficit. Medications Administered Discontinued Medications Generic Name Dose Route Start Last Admin Trade Name Thompson PRN Reason Stop Dose Admin Lorazepam 0.5 mg 05/26/24 23:36 05/26/24 23:48 Lorazepam 0.5 Mg Tablet PO 05/26/24 23:37 0.5 mg ONCE ONE Administration Medical Decision Making Medical Decision Making MDM Narrative: 58 yo female with PMH of what sounds like severe anxiety and HTN here with c/o bradycardia though her atenolol is being held and her BP is stable - will continue with plan no signs of end organ damage she is anxious PO ativan ordered. She also has wasp sting but mild symptoms and she does not want many medications will instruct her to use topical hydrocortisone. She is allergic to steroids. Patient even has 30 day holter monitor in place from [facility] Differential Diagnosis Differential Diagnoses: The differential diagnosis associated with the presentation includes allergic reaction, med reaction, anxiety Admission/Observation Consideration of admission/observation: Escalation of care including admission/observation considered no angioedema stable for DC Independent Interpretation I performed an independent interpretation of an: EKG Interpretation: Rate: 48 Rhythm: sinus bradycardia [place]: normal Normal P waves. Normal MARGARET. Normal QRS complex. ST T wave : no SWAPNIL, inverted t waves V1-V2 qTC: 427 prior studies: no acute ischemia The study has been interpreted contemporaneously by me. . Prescription Management I considered prescription management with: Other Discharge Plan Discharge Clinical Impression: Anxiety, Bradycardia, sinus Allergic reaction Qualifiers: Encounter type: initial encounter Qualified Code(s): T78.40XA - Allergy, unspecified, initial encounter Patient Disposition: Home, Self-Care Instructions: Bradycardia (ED), Anxiety (ED), General Allergic Reaction (ED) Additional Instructions: follow up with your doctor in regards to your low blood pressure return for worsening symptoms and concerns can use topical benadryl and topical hydrocortisone as well as zyrtec for allergy symptoms - return for any issues breathing or oral swelling Prescriptions: New lorazepam [Ativan] 0.5 mg tablet 0.5 mg PO BEDTIME PRN (Reason: anxiety) Qty: 5 0RF No Action levothyroxine [Synthroid] 150 mcg tablet 150 mcg PO DAILY Qty: 30 0RF lorazepam [Ativan] 1 mg tablet 1 mg PO BEDTIME PRN (Reason: anxiety) Qty: 20 0RF potassium chloride 10 mEq capsule, extended release 10 meq PO DAILY Qty: 30 0RF losartan 50 mg tablet 50 mg PO DAILY Qty: 60 0RF amlodipine 5 mg tablet 5 mg PO BID magnesium oxide 400 mg (241.3 mg magnesium) tablet 400 mg PO DAILY sumatriptan succinate 25 mg tablet 25 mg PO Q2-4H PRN diazepam 2 mg tablet 2 mg PO DAILY PRN diclofenac sodium 75 mg tablet,delayed release (DR/EC) 75 mg PO BID epinephrine 0.3 mg/0.3 mL auto-injector 1 mg IM DAILY Print Language: Haitian
[2024-05-26] MEDS: LORazepam 0.5 MG TABLET PO (23:48)
[2024-05-27] VITALS: BP 156/97; PULSE 48; RESP 16; TEMP 36.4; O2SAT 99
[2024-05-27] MEDS: Ondansetron ODT 4 MG TAB.RAPDIS TRANSLINGU (00:41)
[2024-05-27 00:57] VITALS: BP 156/97; PULSE 48; RESP 16; TEMP 36.4; O2SAT 99
== END 2024-05-27 00:58 | disposition home or self-care (01) ==
PROVIDERS: Emergency Provider Emergency Medicine; PCP Internal Medicine
DX: F41.1 Generalized anxiety disorder (principal); R00.1 Bradycardia, unspecified
CPT/HCPCS: 93005; 99283; 99284

== ENCOUNTER → 2024-05-26 22:53 | Outpatient (BNV) | payer BC, SELFPAY | PROVIDERS: Emergency Provider Emergency Medicine; PCP Internal Medicine; Visit Provider Internal Medicine Cardiovascular Disease | DX: R00.1 Bradycardia, unspecified (principal); I45.19 Other right bundle-branch block; R94.31 Abnormal electrocardiogram [ECG] [EKG] | CPT/HCPCS: 93010 ==

== ENCOUNTER 2024-06-14 01:15 | Emergency (ER) | payer BC, SELFPAY ==
[2024-06-14] VITALS (13 sets, daily range): BP systolic 112–183; BP diastolic 86–119; PULSE 54–88; RESP 14–22; TEMP 36.6–36.7; O2SAT 98–100; BMI 26.2
--- NOTE | 2024-06-14 | ECG_ITS ---
Test Reason : PALPATATIONS Blood Pressure : / mmHG Vent. Rate : 066 BPM Atrial Rate : 066 BPM P-R Int : 194 ms QRS Dur : 102 ms QT Int : 416 ms P-R-T Axes : 023 042 015 degrees QTc Int : 436 ms Normal sinus rhythm Incomplete right bundle branch block Borderline ECG When compared with ECG of 26-MAY-2024 22:53, Non-specific change in ST segment in Inferior leads Referred By: Generic ED Physician Electronically Signed By:Demetrio Morin
[2024-06-14 01:46] LABS: MANUAL DIFF FLAG NO
[2024-06-14 01:48] LABS: Basophils Absolute Auto 0.1 X10*3/uL (0.0-0.2); Basophils Percent Auto 1.2 % (0-2); Eosinophils Absolute Auto 0.1 X10*3/uL (0.0-0.4); Eosinophils Percent Auto 2.4 % (0-4); Hematocrit 41.9 % (37.0-47.0); Hemoglobin 14.3 g/dl (12.0-16.0); Imm Gran Abs Auto 0.01 X10*3/uL (0.00-0.03); Imm Gran Pct Auto 0.2 % (0.0-0.4); Lymphocytes Absolute Auto 1.3 X10*3/uL (1.2-4.9); Lymphocytes Percent Auto 30.6 % (20-40); Mean Corpuscular HGB Conc 34.1 g/dl (31.0-35.0); Mean Corpuscular Volume 82.2 fL (80.0-98.0); Mean Platelet Volume 9.9 fL (9.4-12.3); Monocytes Absolute Auto 0.3 X10*3/uL (0.1-1.2); Monocytes Percent Auto 8.3 % (2-11); Neutrophils Absolute Auto 2.4 x10*3/uL (2.0-8.3); Neutrophils Percent Auto 57.3 % (45-73); Platelet Count 228 X10*3/uL (160-400); Red Cell Distribution Width 12.8 % (11.0-16.0); White Blood Count 4.1 X10*3/uL (4.8-10.8)
[2024-06-14 02:03] LABS: Alanine Aminotransferase 23 U/L (0-31); Albumin Level 4.6 g/dL (3.5-5.0); Alkaline Phosphatase 116 U/L (39-117); Anion Gap 13 (12-20); Aspartate Amino Transferase 18 U/L (5-31); Bilirubin Total 0.7 mg/dL (0.0-1.0); Blood Urea Nitrogen 14 mg/dL (9-16); Calcium 10.3 mg/dL (8.4-10.2); Carbon Dioxide 26 mmol/L (22-29); Chloride 107 mmol/L (96-108); Creatinine Clr Calc Pharmacy 76.7; Estimated Glomerular Filt Rate 58; Glucose Random 106 mg/dL (60-115); Sodium 143 mmol/L (135-145); Total Protein 7.3 g/dL (6.5-8.0)
[2024-06-14 02:09] LABS: Troponin-I High Sensitivity 3.8 ng/L (<3.5-17.0)
[2024-06-14 06:58] LABS: Magnesium 2.4 mg/dL (1.6-2.6)
[2024-06-14 07:12] LABS: TSH reflex Free T4 1.25 uIU/mL (0.32-4.0)
[2024-06-14] MEDS: Butalb/Acetamin/Caff 50/325/40 TABLET 1 TAB PO (07:31)
[2024-06-14] MEDS: Potassium Chloride ER 20 MEQ TAB.ER.PRT 60 MEQ PO (07:31)
--- NOTE | 2024-06-14 07:32 | ED.GENADULT ---
HPI - General Adult General Chief complaint: General Medical Stated complaint: SOB Time Seen by Provider: 06/14/24 06:35 Source: patient, EMS, RN notes reviewed and old records reviewed Mode of arrival: EMS History of Present Illness ED Provider: Mayra Jaramillo PA-C HPI narrative: 58-year-old female with a past medical history of anxiety, HTN, hypothyroid, presenting to the ED via EMS complaining of elevated blood pressure, lightheadedness/dizziness, palpitations, and headache since yesterday. States has been struggling with HTN at home with multiple medication changes by PCP in the past few months. Reports currently taking Clonidine patch weekly and PO Hydralazine as needed. Yesterday patient took 50 mg of Hydralazine and 1 mg of Lorazepam in addition to Clonidine patch, denies taking anything today. Reports headache at present. Denies double/blurry vision, chest pain/shortness of breath, abdominal pain, nausea/vomiting Related Data Home Medications ?Medication ?Instructions ?Recorded ?Confirmed amlodipine 5 mg tablet 5 mg PO BID 10/15/23 11/02/23 diazepam 2 mg tablet 2 mg PO DAILY PRN 10/15/23 11/02/23 diclofenac sodium 75 mg 75 mg PO BID 10/15/23 11/02/23 tablet,delayed release epinephrine 0.3 mg/0.3 mL 1 mg IM DAILY 10/15/23 11/02/23 injection, auto-injector magnesium oxide 400 mg (241.3 mg 400 mg PO DAILY 10/15/23 11/02/23 magnesium) tablet sumatriptan succinate 25 mg tablet 25 mg PO Q2-4H PRN 10/15/23 11/02/23 Previous Rx's ?Medication ?Instructions ?Recorded Synthroid 150 mcg tablet 150 mcg PO DAILY #30 tabs 10/08/23 (levothyroxine) losartan 50 mg tablet 50 mg PO DAILY #60 tabs 03/20/24 lorazepam 1 mg tablet (Ativan) 1 mg PO BEDTIME PRN anxiety #20 03/23/24 tabs potassium chloride 10 mEq 10 meq PO DAILY #30 caps 03/23/24 capsule,extended release lorazepam 0.5 mg tablet (Ativan) 0.5 mg PO DAILY PRN sleep #5 tabs 05/27/24 Allergies Allergy/AdvReac Type Severity Reaction Status Date / Time propranolol [PROPRANOLOL] Allergy Unknown UNKNOWN Verified 06/14/24 01:38 chlorhexidine Allergy Unknown Verified 06/14/24 01:38 prednisone AdvReac Severe elevated BP Verified 06/14/24 01:38 propylthiouracil AdvReac Severe urticaria Verified 06/14/24 01:38 amlodipine AdvReac Anxiety Verified 06/14/24 01:38 Review of Systems Review of Systems: Constitutional: No Fever, No Chills ENT/Mouth: No Ear Pain, No Nasal Congestion, No sore throat, No Rhinorrhea, No Swallowing Difficulty Cardiovascular: No Chest Pain, No SOB, + palpitations Respiratory: No Cough, No Sputum, No Wheezing Gastrointestinal: No Nausea, No Vomiting, No Diarrhea, No Constipation, No Abdominal pain Genitourinary: No Dysuria, No Urinary Frequency, No Hematuria, No Flank Pain Musculoskeletal: No joint pain, No Myalgias, No Joint Swelling Skin: No Skin Lesions, No rash Neuro: No Weakness, No Numbness, No Paresthesias, + lightheaded/dizzy, + headache Yes all other systems are reviewed and are negative Constitutional: Constitutional: Reports as per HPI Neurologic: Denies Abnormal speech present [facility] Past Medical History Attestation statement: The following information was validated with the patient. Source: old records reviewed Medical History Anxiety Hypertension Disorder of sacrum Social History Social History Patient Tobacco Use Status: Never used Tobacco Smoked in Last 30 Days: No Use of substances other than those prescribed or required for medical reasons: No Advance Directives: No Advance Directives Information Provided: Yes Patient : No Physical Exam ED Vital Signs: Vital Signs - 24 hr 06/14/24 01:21 06/14/24 01:30 06/14/24 04:53 Temperature 98.0 F 98.0 F 97.8 F Pulse Rate 78 71 58 Respiratory Rate 17 14 20 Blood Pressure 180/119 H 180/119 H 143/98 H Pulse Oximetry 98 98 99 Oxygen Delivery Method Room Air Room Air Room Air 06/14/24 06:31 06/14/24 06:37 06/14/24 08:33 Temperature 98.0 F Pulse Rate 65 74 54 Respiratory Rate 16 22 H Blood Pressure 112/86 159/103 H 152/102 H Pulse Oximetry 98 99 Oxygen Delivery Method Room Air Room Air 06/14/24 10:10 06/14/24 10:32 06/14/24 10:33 Temperature Pulse Rate 70 78 82 Respiratory Rate Blood Pressure 160/108 H 164/109 H 164/109 H Pulse Oximetry Oxygen Delivery Method 06/14/24 12:43 06/14/24 13:40 06/14/24 14:01 Temperature 98.0 F Pulse Rate 62 Respiratory Rate 18 Blood Pressure 174/105 H 145/112 H 141/96 H Pulse Oximetry 99 Oxygen Delivery Method Room Air BMI result Body Mass Index 26.2 Const General: cooperative, healthy appearing and no acute distress Orientation/consciousness: patient oriented x3 Limitations: no limitations HENMT Head: Yes normal to inspection and Yes atraumatic Ears: hearing grossly normal bilaterally General nose exam: Normal external nose present Face and sinus: Yes normal facial exam Eyes General: appearance normal, both eyes and all related structures Pupils: Equal, round and reactive pupils present EOM: EOMs intact bilaterally Neck Neck: Yes normal visual inspection and Yes no meningeal signs Resp Effort & Inspection: normal respiratory effort and no respiratory distress Auscultation: clear to auscultation bilaterally, no crackles and no wheezes Cardio Rate: regular rate Heart sounds: S1 normal heart sound present and S2 normal heart sound present GI Inspection: Yes normal to inspection Palpation (GI): Soft to palpation, nontender, no guarding and not rigid General: Yes no CVA tenderness Back/Spine/Pelvis Back: no CVA tenderness Skin Rashes: no rashes Wounds: no wounds Neuro General: patient oriented x3, tone normal, moves all extremities, no meningeal signs, no focal motor deficits and CN's II-XI intact bilaterally Cranial nerves: Yes CN's II-XII intact bilaterally, Yes Equal, round and reactive pupils present and Yes Bilaterally intact EOM present Cognition (Neuro): normal cognition Speech: No Abnormal speech present Motor exam (neuro): 5/5 motor strength present throughout Extrem General: Yes normal to inspection and Yes no pedal edema Course Course Course Narrative: 0743--potassium low at 3.0 > 60 mEq p.o. repletion ordered. Initial troponin negative > will obtain 3 hour repeat -spoke with covering provider at patient's PCP office, unclear with all of patient's medication changes, concern for anxiety component with medication intolerances. Will not be changing any of patient's p.o. home antihypertensives today. They will make no in chart inpatient will follow up next week > tried to obtain head CT due to hypertension and reported headache however patient refused. We will give home dose 25 mg Hydralazine. No evidence of end-organ failure >1057--patient's blood pressure still elevated 140/113 will give 0.1 mg of p.o. Clonidine and re-evaluate. -1145--case discussed with ED attending Dr. Frazier, patient's blood pressure remains elevated. Will try 2.5 mg of Amlodipine with Ativan. Patient reports side effect of anxiety with Amlodipine which she was previously on 2.5 weeks ago prior to PCP making med changes -1207-- patient now refusing to take Amlodipine in requesting additional clonidine. Did take Ativan. Will recheck blood pressure in 20 minutes, patient hesitant to take any additional medications -BP still elevated, patient now agreeable to take amlodipine, will give 2.5 mg of amlodipine and re-evaluate -1404--patient's blood pressure now 141/96 after p.o. amlodipine. Safe for discharge home at this time. Stressed importance of close follow-up with PCP for medication adjustments and monitoring as well as compliance with all prescribed medications and continued blood pressure monitoring at home Results discussed with patient including worrisome signs and symptoms and strict return precautions, and when to return to the emergency department. They verbalized understanding and feel safe for discharge at this time. Medications Administered Discontinued Medications Generic Name Dose Route Start Last Admin Trade Name Thompson PRN Reason Stop Dose Admin Acetaminophen/Butalbital/Caffeine 1 tab 06/14/24 07:04 06/14/24 07:31 Butalb/Acetamin/Caff 50/325/40 Tablet PO 06/14/24 07:05 1 tab ONCE ONE Administration Amlodipine Besylate 2.5 mg 06/14/24 11:49 06/14/24 13:40 Amlodipine Besylate 2.5 Mg Tablet PO 06/14/24 11:50 2.5 mg ONCE ONE Administration Protocol Clonidine HCl 0.1 mg 06/14/24 10:57 06/14/24 11:07 Clonidine Hcl 0.1 Mg Tablet PO 06/14/24 10:58 0.1 mg ONCE ONE Administration Protocol Hydralazine HCl 25 mg 06/14/24 09:20 06/14/24 09:25 Hydralazine Hcl 25 Mg Tablet PO 06/14/24 09:21 25 mg ONCE ONE Administration Protocol Sodium Chloride 500 mls @ 999 mls/hr 06/14/24 07:30 06/14/24 07:33 Ns IV 06/14/24 08:00 999 mls/hr .Q31M MONIQUE Administration Lorazepam 1 mg 06/14/24 12:00 06/14/24 12:06 Lorazepam 1 Mg Tablet PO 06/14/24 12:01 1 mg ONCE ONE Administration Potassium Chloride 60 meq 06/14/24 07:19 06/14/24 07:31 Potassium Chloride Er 20 Meq Tab.Er.Prt PO 06/14/24 07:20 60 meq ONCE ONE Administration Medical Decision Making Medical Decision Making MDM Narrative: 58-year-old female with a past medical history of anxiety, HTN, hypothyroid, presenting to the ED via EMS complaining of elevated blood pressure, lightheadedness/dizziness, palpitations, and headache since yesterday. On exam patient initially hypertensive on arrival, on this race and sports book writer's evaluation normotensive, NAD, nontoxic appearing, no focal neuro deficits. Concern for uncontrolled hypertension with multiple medication changes vs medication noncompliance vs anxiety. Rule out hypertensive urgency/emergency vs ICH/CVA. Rule out metabolic abnormalities plan: EKG, labs, CXR, blood pressure monitoring, contact PCP Please refer to course for remaining clinical decision making, interpretation of labs/imaging results, and discussions with consultants and/or family members. Differential Diagnosis Differential Diagnoses: The differential diagnosis associated with the presentation includes As above Admission/Observation Consideration of admission/observation: Escalation of care including admission/observation considered Lab Data [facility] Lab Attestation statement: I reviewed the patient's lab results. 06/14/24 01:42 06/14/24 01:42 Labs: Lab Results 06/14/24 06/14/24 Range/Units 01:42 08:35 WBC 4.1 L (4.8-10.8) X10*3/uL RBC 5.10 (4.20-5.50) X10*6/uL Hgb 14.3 (12.0-16.0) g/dl Hct 41.9 (37.0-47.0) % MCV 82.2 (80.0-98.0) fL MCH 28.0 (27.0-33.0) pg MCHC 34.1 (31.0-35.0) g/dl RDW 12.8 (11.0-16.0) % Plt Count 228 (160-400) X10*3/uL MPV 9.9 (9.4-12.3) fL Immature Gran % (Auto) 0.2 (0.0-0.4) % Neut % (Auto) 57.3 (45-73) % Lymph % (Auto) 30.6 (20-40) % [place] % (Auto) 8.3 (2-11) % Eos % (Auto) 2.4 (0-4) % Baso % (Auto) 1.2 (0-2) % Lymph # (Auto) 1.3 (1.2-4.9) X10*3/uL [place] # (Auto) 0.3 (0.1-1.2) X10*3/uL Eos # (Auto) 0.1 (0.0-0.4) X10*3/uL Baso # (Auto) 0.1 (0.0-0.2) X10*3/uL Abs Immat Gran (auto) 0.01 (0.00-0.03) X10*3/uL Absolute Neuts (auto) 2.4 (2.0-8.3) x10*3/uL Absolute Nucleated RBC 0.000 (0.0-0.012) X10*3/uL Nucleated RBC % (auto) 0.0 (0.0-0.2) /100WBC Sodium 143 (135-145) mmol/L Potassium 3.0 L (3.3-5.1) mmol/L Chloride 107 (96-108) mmol/L Carbon Dioxide 26 (22-29) mmol/L Anion Gap 13 (12-20) BUN 14 (9-16) mg/dL Creatinine 0.99 (0.5-1.4) mg/dL Estim Creat Clear Calc 76.7 Estimated GFR 58 Random Glucose 106 (60-115) mg/dL Calcium 10.3 H D (8.4-10.2) mg/dL Magnesium 2.4 (1.6-2.6) mg/dL Total Bilirubin 0.7 (0.0-1.0) mg/dL AST 18 (5-31) U/L ALT 23 (0-31) U/L Alkaline Phosphatase 116 (39-117) U/L Troponin I High Sens 3.8 D 4.2 (<3.5-17.0) ng/L Total Protein 7.3 (6.5-8.0) g/dL Albumin 4.6 (3.5-5.0) g/dL TSH 1.25 (0.32-4.0) uIU/mL Independent Interpretation I performed an independent interpretation of an: EKG (My interpretation EKG normal sinus rhythm rate of 66. KS interval 194. QTC 436. No STEMI ) and CT Scan Radiology Impression Discussion of test interpretation with radiology: I have reviewed the radiologist's reading. Independent Historian Clinical information obtained from an independent historian. History obtained from or confirmed by: EMS External Record Review External record reviewed: Inpatient record, Office record, Outpatient record, Prior outpatient labs, Prior outpatient radiology, Primary care record and Outside ED record Tests considered The following testing was considered but not selected: As above Prescription Management I considered prescription management with: Other Chronic Conditions Patient?s care impacted by: Hypertension Discharge Plan Discharge Clinical Impression: Uncontrolled hypertension Patient Disposition: Home, Self-Care Instructions: Heart Healthy Diet (DC), Hypertension (ED) Additional Instructions: Your blood work is reassuring Your blood pressure is very elevated, it is important for you to take all of your prescribed medications and call your doctor for very close follow-up in the next few days If her blood pressure remains elevated, you have chest pain, shortness of breath, headache, lightheadedness or dizziness return to the ED immediately Prescriptions: No Action levothyroxine [Synthroid] 150 mcg tablet 150 mcg PO DAILY Qty: 30 0RF lorazepam [Ativan] 1 mg tablet 1 mg PO BEDTIME PRN (Reason: anxiety) Qty: 20 0RF potassium chloride 10 mEq capsule, extended release 10 meq PO DAILY Qty: 30 0RF losartan 50 mg tablet 50 mg PO DAILY Qty: 60 0RF lorazepam [Ativan] 0.5 mg tablet 0.5 mg PO DAILY PRN (Reason: sleep) Qty: 5 0RF amlodipine 5 mg tablet 5 mg PO BID magnesium oxide 400 mg (241.3 mg magnesium) tablet 400 mg PO DAILY sumatriptan succinate 25 mg tablet 25 mg PO Q2-4H PRN diazepam 2 mg tablet 2 mg PO DAILY PRN diclofenac sodium 75 mg tablet,delayed release (DR/EC) 75 mg PO BID epinephrine 0.3 mg/0.3 mL auto-injector 1 mg IM DAILY Referrals: Physician,Unknown J [Primary Care Provider] - 2 days Print Language: Syriac
[2024-06-14] MEDS: 0.9 % Sodium Chloride 500 ML 999 ML IV (07:33)
[2024-06-14 09:00] LABS: Troponin-I High Sensitivity 4.2 ng/L (<3.5-17.0)
[2024-06-14] MEDS: hydrALAZINE HCl 25 MG TABLET PO (09:25)
[2024-06-14] MEDS: cloNIDine HCL 0.1 MG TABLET PO (11:07)
[2024-06-14] MEDS: LORazepam 1 MG TABLET PO (12:06)
[2024-06-14] MEDS: amLODIPine Besylate 2.5 MG TABLET PO (13:40)
== END 2024-06-14 19:07 | disposition home or self-care (01) ==
PROVIDERS: Physician Assistant; Emergency Provider Emergency Medicine
DX: I10 Essential (primary) hypertension (principal); R06.02 Shortness of breath; Z79.899 Other long term (current) drug therapy
CPT/HCPCS: 36415; 80053; 83735; 84443; 84484; 85025; 93005; 99284; 99285

== ENCOUNTER → 2024-06-14 01:22 | Outpatient (BNV) | payer BC, SELFPAY | PROVIDERS: Emergency Provider Emergency Medicine; Visit Provider Internal Medicine Cardiovascular Disease | DX: I10 Essential (primary) hypertension (principal) | CPT/HCPCS: 93010 ==

== ENCOUNTER 2024-06-16 20:35 | Emergency (ER) | payer BC, SELFPAY ==
[2024-06-16 21:03] VITALS: BP 193/124; PULSE 78; RESP 16; TEMP 36.6; O2SAT 99; BMI 25.1
--- NOTE | 2024-06-16 21:07 | ECG_ITS ---
Test Reason : HTN Blood Pressure : / mmHG Vent. Rate : 072 BPM Atrial Rate : 072 BPM P-R Int : 194 ms QRS Dur : 096 ms QT Int : 408 ms P-R-T Axes : 049 020 053 degrees QTc Int : 446 ms Normal sinus rhythm Normal ECG When compared with ECG of 14-JUN-2024 01:22, Incomplete right bundle branch block is no longer Present Non-specific change in ST segment in Inferior leads Referred By: Generic ED Physician Electronically Signed By:AFUA TORRES MD
[2024-06-16 21:30] LABS: MANUAL DIFF FLAG NO
[2024-06-16 21:42] LABS: Basophils Percent Auto 0.9 % (0-2); Eosinophils Absolute Auto 0.1 X10*3/uL (0.0-0.4); Eosinophils Percent Auto 2.8 % (0-4); Hematocrit 43.8 % (37.0-47.0); Hemoglobin 14.7 g/dl (12.0-16.0); Imm Gran Abs Auto 0.01 X10*3/uL (0.00-0.03); Imm Gran Pct Auto 0.2 % (0.0-0.4); Lymphocytes Absolute Auto 1.4 X10*3/uL (1.2-4.9); Lymphocytes Percent Auto 32.7 % (20-40); Mean Corpuscular HGB Conc 33.6 g/dl (31.0-35.0); Mean Corpuscular Hemoglobin 28.3 pg (27.0-33.0); Mean Corpuscular Volume 84.2 fL (80.0-98.0); Mean Platelet Volume 9.9 fL (9.4-12.3); Monocytes Absolute Auto 0.4 X10*3/uL (0.1-1.2); Monocytes Percent Auto 8.5 % (2-11); Neutrophils Absolute Auto 2.3 x10*3/uL (2.0-8.3); Neutrophils Percent Auto 54.9 % (45-73); Platelet Count 266 X10*3/uL (160-400); Red Cell Distribution Width 12.8 % (11.0-16.0); White Blood Count 4.3 X10*3/uL (4.8-10.8)
[2024-06-16 21:52] LABS: Anion Gap 13 (12-20); Blood Urea Nitrogen 12 mg/dL (9-16); Carbon Dioxide 24 mmol/L (22-29); Chloride 108 mmol/L (96-108); Creatinine Clr Calc Pharmacy 78.9; Estimated Glomerular Filt Rate > 60; Glucose Random 108 mg/dL (60-115); Potassium 3.6 mmol/L (3.3-5.1); Sodium 141 mmol/L (135-145)
[2024-06-16 22:01] LABS: Troponin-I High Sensitivity 3.6 ng/L (<3.5-17.0)
[2024-06-16 22:22] VITALS: BP 175/109; PULSE 72; RESP 16; O2SAT 99
--- NOTE | 2024-06-16 22:53 | ED.GENADULT ---
HPI - General Adult General Chief complaint: General Medical Stated complaint: HBP/dizzy Time Seen by Provider: 06/16/24 22:34 Source: patient and family Mode of arrival: ambulatory Limitations: no limitations History of Present Illness HPI narrative: Patient is a 58-year-old female who presents to the emergency department with her mother for evaluation of elevated blood pressure readings, intermittent dizziness/lightheadedness, palpitations, headache. She states that over the past few months she has been scheduling with uncontrolled hypertension states she has had multiple medication changes by her primary care doctor. Most recently she has been taking a clonidine patch for the past 2 weeks but does not feel as though this is helping her symptoms. She has been prescribed hydralazine to use as needed for elevated blood pressure readings. She states that when she was seen in the emergency department 2 days ago she took the hydralazine twice in 1 day which resulted in ?rebound tenderness and tachycardia with a pulse of 112?, she does no longer wishes to take hydralazine. She states that when prescribed atenolol in the past she had subsequent bradycardia. She took losartan for approximately 1 month without any improvement in her blood pressure. She reports a ?severe reaction? to amlodipine resulting in palpitations at night, arrhythmia, flushing of the face, depression, and high levels of anxiety. She has a follow-up appointment with her primary care doctor on 02/18/2024 and an appointment with Cardiology on 06/27/2024 and she does not feel as though she can wait until either appointment for additional medication changes. Related Data Home Medications ?Medication ?Instructions ?Recorded ?Confirmed amlodipine 5 mg tablet 5 mg PO BID 10/15/23 11/02/23 diazepam 2 mg tablet 2 mg PO DAILY PRN 10/15/23 11/02/23 diclofenac sodium 75 mg 75 mg PO BID 10/15/23 11/02/23 tablet,delayed release epinephrine 0.3 mg/0.3 mL 1 mg IM DAILY 10/15/23 11/02/23 injection, auto-injector magnesium oxide 400 mg (241.3 mg 400 mg PO DAILY 10/15/23 11/02/23 magnesium) tablet sumatriptan succinate 25 mg tablet 25 mg PO Q2-4H PRN 10/15/23 11/02/23 Previous Rx's ?Medication ?Instructions ?Recorded Synthroid 150 mcg tablet 150 mcg PO DAILY #30 tabs 10/08/23 (levothyroxine) losartan 50 mg tablet 50 mg PO DAILY #60 tabs 03/20/24 lorazepam 1 mg tablet (Ativan) 1 mg PO BEDTIME PRN anxiety #20 03/23/24 tabs potassium chloride 10 mEq 10 meq PO DAILY #30 caps 03/23/24 capsule,extended release lorazepam 0.5 mg tablet (Ativan) 0.5 mg PO DAILY PRN sleep #5 tabs 05/27/24 Allergies Allergy/AdvReac Type Severity Reaction Status Date / Time propranolol [PROPRANOLOL] Allergy Unknown UNKNOWN Verified 06/16/24 21:06 chlorhexidine Allergy Unknown Verified 06/16/24 21:06 prednisone AdvReac Severe elevated BP Verified 06/16/24 21:06 propylthiouracil AdvReac Severe urticaria Verified 06/16/24 21:06 amlodipine AdvReac Anxiety Verified 06/16/24 21:06 [facility] Past Medical History Medical History Anxiety Hypertension Disorder of sacrum Social History Social History Patient Tobacco Use Status: Never used Tobacco Smoked in Last 30 Days: No Use of substances other than those prescribed or required for medical reasons: No Advance Directives: No Advance Directives Information Provided: No Physical Exam ED Vital Signs: Vital Signs - 24 hr 06/16/24 21:03 06/16/24 22:22 06/16/24 23:05 Temperature 98 F Pulse Rate 78 72 72 Respiratory Rate 16 16 17 Blood Pressure 193/124 H 175/109 H 188/115 H Pulse Oximetry 99 99 99 Oxygen Delivery Method Room Air Room Air Room Air 06/17/24 01:53 Temperature 98.5 F Pulse Rate 68 Respiratory Rate 17 Blood Pressure 170/111 H Pulse Oximetry 99 Oxygen Delivery Method Room Air BMI result Body Mass Index 25.1 Course Reevaluation(s) Reevaluation #1: Her blood pressure is improving, down to 174/104 manually. She admits to feeling anxious, states she was prescribed Ativan mg as needed at bedtime which she is requesting at this time, we will give her this in addition to acetaminophen as she feels a return of her headache. Instructed her to have close outpatient follow-up with her primary care doctor as scheduled. Reviewed worrisome signs and symptoms that would warrant re-evaluation in the emergency department. All questions answered. Medications Administered Discontinued Medications Generic Name Dose Route Start Last Admin Trade Name Thompson PRN Reason Stop Dose Admin Lisinopril 5 mg 06/17/24 00:20 06/17/24 00:34 Lisinopril 5 Mg Tablet PO 06/17/24 00:21 5 mg ONCE ONE Administration Protocol Medical Decision Making Medical Decision Making [facility] Narrative: Patient is a 58-year-old female past medical history of anxiety, hypertension, hypothyroidism presenting to emergency department for evaluation of elevated blood pressure readings as per HPI. She arrives hypertensive, most recently 118/115, she is in no apparent distress, has no focal neurological deficits, she does appear quite anxious on evaluation. Review of serum labs obtained prior to my assumption of care, she is without evidence of end-organ dysfunction, EKG without acute ischemic findings, high sensitive troponin below detectable limits. Will trial additional management with lisinopril at this time in addition to acetaminophen for headache. We did have an at length discussion about anticipated time for efficacy with any new blood pressure medication dosage, and she verbalized understanding of this. Given her trialed multiple medications/drug classes in the past I think it best suited that the decision for an additional agent or dosage change come from her primary care doctor for Cardiology. Differential Diagnosis Differential Diagnoses: The differential diagnosis associated with the presentation includes (See narrative above) Admission/Observation Consideration of admission/observation: Escalation of care including admission/observation considered Lab Data MDM Lab Attestation statement: I reviewed the patient's lab results. CBC is without leukocytosis anemia or thrombocytopenia. No electrolyte derangement. No SOL. High sensitive troponin below detectable limits. 06/16/24 21:22 06/16/24 21:23 Labs: Lab Results 06/16/24 06/16/24 Range/Units 21:22 21:23 WBC 4.3 L (4.8-10.8) X10*3/uL RBC 5.20 (4.20-5.50) X10*6/uL Hgb 14.7 (12.0-16.0) g/dl Hct 43.8 (37.0-47.0) % MCV 84.2 (80.0-98.0) fL MCH 28.3 (27.0-33.0) pg MCHC 33.6 (31.0-35.0) g/dl RDW 12.8 (11.0-16.0) % Plt Count 266 (160-400) X10*3/uL MPV 9.9 (9.4-12.3) fL Immature Gran % (Auto) 0.2 (0.0-0.4) % Neut % (Auto) 54.9 (45-73) % Lymph % (Auto) 32.7 (20-40) % [place] % (Auto) 8.5 (2-11) % Eos % (Auto) 2.8 (0-4) % Baso % (Auto) 0.9 (0-2) % Lymph # (Auto) 1.4 (1.2-4.9) X10*3/uL [place] # (Auto) 0.4 (0.1-1.2) X10*3/uL Eos # (Auto) 0.1 (0.0-0.4) X10*3/uL Baso # (Auto) 0.0 (0.0-0.2) X10*3/uL Abs Immat Gran (auto) 0.01 (0.00-0.03) X10*3/uL Absolute Neuts (auto) 2.3 (2.0-8.3) x10*3/uL Absolute Nucleated RBC 0.000 (0.0-0.012) X10*3/uL Nucleated RBC % (auto) 0.0 (0.0-0.2) /100WBC Sodium 141 (135-145) mmol/L Potassium 3.6 (3.3-5.1) mmol/L Chloride 108 (96-108) mmol/L Carbon Dioxide 24 (22-29) mmol/L Anion Gap 13 (12-20) BUN 12 (9-16) mg/dL Creatinine 0.89 (0.5-1.4) mg/dL Estim Creat Clear Calc 78.9 Estimated GFR > 60 Random Glucose 108 (60-115) mg/dL Calcium 10.0 (8.4-10.2) mg/dL Troponin I High Sens 3.6 (<3.5-17.0) ng/L Independent Interpretation I performed an independent interpretation of an: EKG Interpretation: Rate: 72 Rhythm:? Normal sinus rhythm [place]:? Normal Normal P waves.? Normal MARGARET.?? Normal QRS complex.?? ST T wave :??No ST elevation, no ST depression qTC: 446 prior studies:? 06/14/2024 The study has been interpreted contemporaneously by me. External Record Review External record reviewed: Outpatient record Discharge Plan Discharge Clinical Impression: Uncontrolled hypertension Patient Disposition: Home, Self-Care Instructions: How to Take a Blood Pressure (ED), Heart Healthy Diet (DC), Chronic Hypertension (DC) Additional Instructions: As discussed it is very important that you follow-up with your primary care doctor as scheduled in regards to your blood pressure management. If you begin to develop new or worsening symptoms or concerns including chest pain, shortness of breath, headache that is unrelieved by medications, dizziness, feeling like her going to pass out, you may return back to emergency department. Prescriptions: No Action levothyroxine [Synthroid] 150 mcg tablet 150 mcg PO DAILY Qty: 30 0RF lorazepam [Ativan] 1 mg tablet 1 mg PO BEDTIME PRN (Reason: anxiety) Qty: 20 0RF potassium chloride 10 mEq capsule, extended release 10 meq PO DAILY Qty: 30 0RF losartan 50 mg tablet 50 mg PO DAILY Qty: 60 0RF lorazepam [Ativan] 0.5 mg tablet 0.5 mg PO DAILY PRN (Reason: sleep) Qty: 5 0RF amlodipine 5 mg tablet 5 mg PO BID magnesium oxide 400 mg (241.3 mg magnesium) tablet 400 mg PO DAILY sumatriptan succinate 25 mg tablet 25 mg PO Q2-4H PRN diazepam 2 mg tablet 2 mg PO DAILY PRN diclofenac sodium 75 mg tablet,delayed release (DR/EC) 75 mg PO BID epinephrine 0.3 mg/0.3 mL auto-injector 1 mg IM DAILY Print Language: Syrian
[2024-06-16 23:05] VITALS: BP 188/115; PULSE 72; RESP 17; O2SAT 99
[2024-06-17] MEDS: lisinopriL 5 MG TABLET PO (00:34)
[2024-06-17 01:53] VITALS: BP 170/111; PULSE 68; RESP 17; TEMP 36.9; O2SAT 99
[2024-06-17] MEDS: Ondansetron ODT 4 MG TAB.RAPDIS TRANSLINGU (02:43)
[2024-06-17] MEDS: Acetaminophen 325 MG TABLET 650 MG PO (02:43)
[2024-06-17] MEDS: LORazepam 1 MG TABLET PO (02:43)
[2024-06-17 02:48] VITALS: BP 170/111; PULSE 68; RESP 17; TEMP 36.9; O2SAT 99
== END 2024-06-17 02:49 | disposition home or self-care (01) ==
PROVIDERS: Emergency Provider Internal Medicine; PCP Internal Medicine
DX: R42 Dizziness and giddiness (principal); R03.0 Elevated blood-pressure reading, without diagnosis of hypertension; R00.2 Palpitations; Z79.899 Other long term (current) drug therapy
CPT/HCPCS: 36415; 80048; 84484; 85025; 93005; 99283; 99284

== ENCOUNTER → 2024-06-16 21:07 | Outpatient (BNV) | payer BC, SELFPAY | PROVIDERS: Emergency Provider Internal Medicine; PCP Internal Medicine; Visit Provider Internal Medicine Cardiovascular Disease | DX: I10 Essential (primary) hypertension (principal); R94.31 Abnormal electrocardiogram [ECG] [EKG] | CPT/HCPCS: 93010 ==

== ENCOUNTER 2024-12-29 18:35 | Emergency (ER) | payer BC, SELFPAY ==
--- NOTE | ~2024-12-29 | XR_ITS ---
CLINICAL HISTORY: CP 1 view chest x-ray Comparison: CR/SR - XR CHEST 1V - 03/20/24 21:23 EDT Findings: No consolidation or effusion. Heart size is normal. No acute fracture. IMPRESSION: 1. No acute findings. This document has been electronically signed by: Sulma Gomez MD on 12/29/2024 20:15:24
--- NOTE | ~2024-12-29 | CT_ITS ---
CLINICAL HISTORY: [place], N V, very high BP CT head without contrast Comparison: CT/SR - CT HEAD/BRAIN WO IV CON - 03/20/24 21:11 EDT Findings: No intra-axial mass, midline shift, hydrocephalus, or acute hemorrhage. No significant atrophy-like change or white matter disease. The visualized paranasal sinuses and mastoid air cells are normal. The orbits are within normal limits. No skull fracture. IMPRESSION: 1. No acute intracranial findings. This document has been electronically signed by: Sulma Gomez MD on 12/29/2024 21:20:26
--- NOTE | ~2024-12-29 | CT_ITS ---
CLINICAL HISTORY: r o pheochromocytoma vs renal stenosis + L flank CT abdomen and pelvis with contrast Comparison: None Findings: No consolidation or effusion. The gallbladder and solid organs are within normal limits. No renal stones. Adrenal glands are within normal limits. No significant atherosclerotic disease or stenosis of the renal arteries appreciated. No bowel obstruction, pneumoperitoneum, or pneumatosis. Moderately distended urinary bladder. Normal appendix. No acute fracture. IMPRESSION: No acute findings. Adrenal glands are unremarkable. No significant atherosclerotic disease or stenosis of the renal arteries. This document has been electronically signed by: Sulma Gomez MD on 12/29/2024 21:09:58
[2024-12-29 18:42] VITALS: BP 223/140; PULSE 80; RESP 18; TEMP 36.6; O2SAT 99; BMI 25.1
--- NOTE | 2024-12-29 18:42 | ED_ITS ---
HPI - General Adult General Chief complaint: General Medical Stated complaint: HBP Time Seen by Provider: 12/29/24 18:51 Source: patient and family Mode of arrival: ambulatory Limitations: no limitations History of Present Illness ED Provider: Dr. Erica Jack HPI narrative: To the emergency room complaining of severe headache, palpitations, flushing, nausea, no vomiting, left arm pain. Patient states that she has been diagnosed with hypertension in the past. Has tried multiple medications. Patient states that she is currently on enalapril 10 mg b.i.d. which she already took. Even took an extra dose to help with the high blood pressure, and also took spironolactone 25 mg. Also, patient took clonidine. Patient states that despite taking these medications, her blood pressure is above 200. Patient sees a reservations specialist and Cardiology for hypertension, both advice her to come to the emergency room for evaluation. Related Data Home Medications ?Medication ?Instructions ?Recorded ?Confirmed amlodipine 5 mg tablet 5 mg PO BID 10/15/23 11/02/23 diazepam 2 mg tablet 2 mg PO DAILY PRN 10/15/23 11/02/23 diclofenac sodium 75 mg 75 mg PO BID 10/15/23 11/02/23 tablet,delayed release epinephrine 0.3 mg/0.3 mL 1 mg IM DAILY 10/15/23 11/02/23 injection, auto-injector magnesium oxide 400 mg (241.3 mg 400 mg PO DAILY 10/15/23 11/02/23 magnesium) tablet sumatriptan succinate 25 mg tablet 25 mg PO Q2-4H PRN 10/15/23 11/02/23 Previous Rx's ?Medication ?Instructions ?Recorded Synthroid 150 mcg tablet 150 mcg PO DAILY #30 tabs 10/08/23 (levothyroxine) losartan 50 mg tablet 50 mg PO DAILY #60 tabs 03/20/24 lorazepam 1 mg tablet (Ativan) 1 mg PO BEDTIME PRN anxiety #20 03/23/24 tabs potassium chloride 10 mEq 10 meq PO DAILY #30 caps 03/23/24 capsule,extended release lorazepam 0.5 mg tablet (Ativan) 0.5 mg PO DAILY PRN sleep #5 tabs 05/27/24 hydralazine 25 mg tablet 25 mg PO TID PRN hypertension #20 12/29/24 tabs Allergies Allergy/AdvReac Type Severity Reaction Status Date / Time propranolol [PROPRANOLOL] Allergy Unknown UNKNOWN Verified 12/29/24 18:46 chlorhexidine Allergy Unknown Verified 12/29/24 18:46 prednisone AdvReac Severe elevated BP Verified 12/29/24 18:46 propylthiouracil AdvReac Severe urticaria Verified 12/29/24 18:46 amlodipine AdvReac Anxiety Verified 12/29/24 18:46 clonidine AdvReac Palpitation Verified 12/29/24 18:46 s Review of Systems 2 Review of Systems: Constitutional : No Weight loss, No Fever, No Chills, No Night Sweats, No Fatigue, No Malaise ENT/Mouth : No Hearing loss, No Ear Pain, No Nasal Congestion, No Sinus Pain, No Hoarseness, No sore throat, No Rhinorrhea, No Swallowing Difficulty Eyes: No Eye Pain, No Swelling, No Redness, No Foreign Body, No Discharge, No Vision Changes Cardiovascular : No Chest Pain, No SOB, No Dyspnea on Exertion, No Orthopnea, No Edema, No Palpitations Respiratory : No Cough, No Sputum, No Wheezing, No Smoke Exposure, No Dyspnea Gastrointestinal : No Nausea, No Vomiting, No Diarrhea, No Constipation, No abdominal Pain, No Hematochezia, No Melena Genitourinary : no irregular bleeding, No Dysuria, No Urinary Frequency, No Hematuria, No Urinary Incontinence, No Urgency, No Flank Pain, No Urinary Flow Changes, No Hesitancy Musculoskeletal : No joint pain, No Myalgias, No Joint Swelling Skin : No Skin Lesions, No rash Neuro : No Weakness, No Numbness, No Paresthesias, No Loss of Consciousness, No Dizziness, No Headache Psych : No Anxiety/Panic, No Depression, No SI/HI/AH/VH, No Social Issues, Heme/Lymph: No Bruising, No Bleeding,No Lymphadenopathy Endocrine : No Polyuria, No Polydipsia, No Temperature Intolerance [facility] Past Medical History Medical History Anxiety Hypertension Disorder of sacrum Social History Social History Patient Tobacco Use Status: Never used Tobacco Advance Directives: No Advance Directives Information Provided: No Do you have a plan to hurt others: No Plan Physical Exam ED Vital Signs: Vital Signs - 24 hr 12/29/24 18:42 12/29/24 19:26 12/29/24 20:16 Temperature 98 F Pulse Rate 80 90 Respiratory Rate 18 13 Blood Pressure 223/140 H 196/125 H 177/113 H Pulse Oximetry 99 Oxygen Delivery Method Room Air 12/29/24 20:50 Temperature Pulse Rate 78 Respiratory Rate 16 Blood Pressure 156/103 H Pulse Oximetry 100 Oxygen Delivery Method Room Air BMI result Body Mass Index 25.1 Course Course Course Narrative: This is an RME: Additional HPI, ROS, PE not included below will be deferred to primary provider. RME assessment and note performed by: Jessica Benjamin PA-C This is a 47-ufrs-atn-female, with a hx of HTN, who presents to the ER with complaints of left sided arm pain and chest pain since 1pm. Reports some numbness into the left arm. Blood pressure 214/134, repeat 223/140. Patient to be brought back darien. She took her blood pressure medications, no missed dosages however states that she has been not taking her spironolactone as frequently due to mood changes however she states that she did take this today. Plan: Labs, EKG, CXR, Viral swabs Medications Administered Discontinued Medications Generic Name Dose Route Start Last Admin Trade Name Freq PRN Reason Stop Dose Admin Hydralazine HCl 5 mg 12/29/24 19:16 12/29/24 19:26 Hydralazine Hcl 20 Mg/Ml Vial IVPUSH 12/29/24 19:17 5 mg ONCE ONE Administration Protocol Iohexol 100 ml 12/29/24 20:03 12/29/24 20:03 Iohexol 350 Mg/Ml 100 Ml Infus..Btl IV 12/29/24 20:04 85 ml ONCE ONE Administration Morphine Sulfate 2 mg 12/29/24 19:15 12/29/24 19:27 Morphine Sulfate 2 Mg/Ml Cartridge IVPUSH 12/29/24 19:16 2 mg ONCE ONE Administration Protocol Nitroglycerin 1 inch 12/29/24 19:16 12/29/24 19:28 Nitroglycerin 2 % Oint 1 Gm Packet TRANSDERMA 12/29/24 19:17 1 inch ONCE ONE Administration Ondansetron HCl 4 mg 12/29/24 19:15 12/29/24 19:27 Ondansetron Hcl 4 Mg/2 Ml Vial IVPUSH 12/29/24 19:16 4 mg ONCE ONE Administration Medical Decision Making Medical Decision Making [facility] Narrative: My interpretation of labs: No significant abnormality in patient's hematology and chemistry, normal renal function, normal troponin My interpretation of EKG: Normal sinus rhythm, heart rate 75, no ST segment depression or elevation, no T-wave inversion, QTC 455 On arrival, patient's blood pressure 223/140. Patient had already taking 30 mg of enalapril throughout the day, an extra dose of spironolactone 25 mg. Here in the emergency room, patient received 1 dose of IV hydralazine and nitro paste. Patient's blood pressure 156/103. Patient states that initially hit her headache when I get when but it came back. This is likely secondary to nitro paste. Patient was provided with 1 mg of ketorolac. 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 In the meantime, patient will be given hydralazine p.r.n. high blood pressure, greater than 180 I discussed with the patient that she may benefit from further studies such as arterial artery stenosis rule out Differential Diagnosis Differential Diagnoses: The differential diagnosis associated with the presentation includes (Chronic hypertension, hypertensive urgency, renal artery stenosis, pheochromocytoma) Admission/Observation Consideration of admission/observation: Escalation of care including admission/observation considered (Given patient's initial presentation, observation was considered) Lab Data [facility] Lab Attestation statement: I reviewed the patient's lab results. 12/29/24 19:10 12/29/24 19:10 Labs: Lab Results 12/29/24 12/29/24 Range/Units 19:10 19:11 WBC 5.4 (4.8-10.8) X10*3/uL RBC 5.63 H (4.20-5.50) X10*6/uL Hgb 15.9 (12.0-16.0) g/dl Hct 48.8 H (37.0-47.0) % MCV 86.7 (80.0-98.0) fL MCH 28.2 (27.0-33.0) pg MCHC 32.6 (31.0-35.0) g/dl RDW 13.2 (11.0-16.0) % Plt Count 245 (160-400) X10*3/uL MPV 9.0 L (9.4-12.3) fL Immature Gran % (Auto) 0.2 (0.0-0.4) % Neut % (Auto) 61.2 (45-73) % Lymph % (Auto) 29.6 (20-40) % [place] % (Auto) 6.4 (2-11) % Eos % (Auto) 1.3 (0-4) % Baso % (Auto) 1.3 (0-2) % Lymph # (Auto) 1.6 (1.2-4.9) X10*3/uL [place] # (Auto) 0.4 (0.1-1.2) X10*3/uL Eos # (Auto) 0.1 (0.0-0.4) X10*3/uL Baso # (Auto) 0.1 (0.0-0.2) X10*3/uL Abs Immat Gran (auto) 0.01 (0.00-0.03) X10*3/uL Absolute Neuts (auto) 3.3 (2.0-8.3) x10*3/uL Absolute Nucleated RBC 0.000 (0.0-0.012) X10*3/uL Nucleated RBC % (auto) 0.0 (0.0-0.2) /100WBC PT 10.9 (10.9-12.4) SEC INR 0.9 (0.9-1.1) APTT 34.0 (26.0-36.8) SEC Sodium 142 (135-145) mmol/L Potassium 3.7 (3.3-5.1) mmol/L Chloride 107 (96-108) mmol/L Carbon Dioxide 26 (22-29) mmol/L Anion Gap 13 (12-20) BUN 14 (9-16) mg/dL Creatinine 0.79 (0.5-1.4) mg/dL Estim Creat Clear Calc 87.8 Estimated GFR > 60 Random Glucose 104 (60-115) mg/dL Calcium 10.1 (8.4-10.2) mg/dL Magnesium 2.1 (1.6-2.6) mg/dL Total Bilirubin 0.4 (0.0-1.0) mg/dL Direct Bilirubin 0.1 (0.0-0.5) mg/dL AST 37 H (5-31) U/L ALT 39 H (0-31) U/L Alkaline Phosphatase 112 (39-117) U/L Troponin I High Sens 4.6 (<3.5-17.0) ng/L Total Protein 8.6 H (6.5-8.0) g/dL Albumin 5.0 (3.5-5.0) g/dL TSH 2.34 (0.32-4.0) uIU/mL Influenza Type A (PCR) NEGATIVE (Negative) Influenza Type B (PCR) NEGATIVE (Negative) RSV RNA Qual (PCR) NEGATIVE (Negative) SARS-CoV-2 RNA (RT-PCR) NEGATIVE (Negative) Independent Interpretation I performed an independent interpretation of an: CT Scan Radiology Impression Discussion of test interpretation with radiology: I have reviewed the radiologist's reading. Radiologist Impression: No intra-axial mass, midline shift, hydrocephalus, or acute hemorrhage. No significant atrophy-like change or white matter disease. The visualized paranasal sinuses and mastoid air cells are normal. The orbits are within normal limits. No skull fracture. No consolidation or effusion. The gallbladder and solid organs are within normal limits. No renal stones. Adrenal glands are within normal limits. No significant atherosclerotic disease or stenosis of the renal arteries appreciated. No bowel obstruction, pneumoperitoneum, or pneumatosis. Moderately distended urinary bladder. Normal appendix. No acute fracture. Discharge Plan Discharge Clinical Impression: Hypertensive urgency Patient Disposition: Home, Self-Care Instructions: Hypertensive Crisis (ED) Additional Instructions: Please follow-up with your primary care physician tomorrow. If you have any worsening or new symptoms, please return to the emergency room or call 911 Prescriptions: New hydralazine 25 mg tablet 25 mg PO TID PRN (Reason: hypertension) Qty: 20 0RF Rx Instructions: PRN Blood pressure higher than 180s systolic No Action levothyroxine [Synthroid] 150 mcg tablet 150 mcg PO DAILY Qty: 30 0RF lorazepam [Ativan] 1 mg tablet 1 mg PO BEDTIME PRN (Reason: anxiety) Qty: 20 0RF potassium chloride 10 mEq capsule, extended release 10 meq PO DAILY Qty: 30 0RF losartan 50 mg tablet 50 mg PO DAILY Qty: 60 0RF lorazepam [Ativan] 0.5 mg tablet 0.5 mg PO DAILY PRN (Reason: sleep) Qty: 5 0RF amlodipine 5 mg tablet 5 mg PO BID magnesium oxide 400 mg (241.3 mg magnesium) tablet 400 mg PO DAILY sumatriptan succinate 25 mg tablet 25 mg PO Q2-4H PRN diazepam 2 mg tablet 2 mg PO DAILY PRN diclofenac sodium 75 mg tablet,delayed release (DR/EC) 75 mg PO BID epinephrine 0.3 mg/0.3 mL auto-injector 1 mg IM DAILY Print Language: Malawian
--- NOTE | 2024-12-29 18:50 | ECG_ITS ---
Test Reason : HTN Blood Pressure : */* mmHG Vent. Rate : 75 BPM Atrial Rate : 75 BPM P-R Int : 190 ms QRS Dur : 100 ms QT Int : 408 ms P-R-T Axes : 41 10 53 degrees QTcB Int : 455 ms Normal sinus rhythm Possible Left atrial enlargement Incomplete right bundle branch block Borderline ECG When compared with ECG of 16-Jun-2024 21:09, Incomplete right bundle branch block is now Present Referred By: Jessica Benjamin Electronically Signed By: EVERARDO SYED
[2024-12-29 19:15] LABS: MANUAL DIFF FLAG NO
[2024-12-29 19:17] LABS: Basophils Absolute Auto 0.1 X10*3/uL (0.0-0.2); Basophils Percent Auto 1.3 % (0-2); Eosinophils Absolute Auto 0.1 X10*3/uL (0.0-0.4); Eosinophils Percent Auto 1.3 % (0-4); Hematocrit 48.8 % (37.0-47.0); Hemoglobin 15.9 g/dl (12.0-16.0); Imm Gran Abs Auto 0.01 X10*3/uL (0.00-0.03); Imm Gran Pct Auto 0.2 % (0.0-0.4); Lymphocytes Absolute Auto 1.6 X10*3/uL (1.2-4.9); Lymphocytes Percent Auto 29.6 % (20-40); Mean Corpuscular HGB Conc 32.6 g/dl (31.0-35.0); Mean Corpuscular Hemoglobin 28.2 pg (27.0-33.0); Mean Corpuscular Volume 86.7 fL (80.0-98.0); Monocytes Absolute Auto 0.4 X10*3/uL (0.1-1.2); Monocytes Percent Auto 6.4 % (2-11); Neutrophils Absolute Auto 3.3 x10*3/uL (2.0-8.3); Neutrophils Percent Auto 61.2 % (45-73); Platelet Count 245 X10*3/uL (160-400); Red Blood Count 5.63 X10*6/uL (4.20-5.50); Red Cell Distribution Width 13.2 % (11.0-16.0); White Blood Count 5.4 X10*3/uL (4.8-10.8)
--- NOTE | 2024-12-29 19:19 | PC.NURSE ---
this rn assumed care of pt from waiting room @ 1910. pt placed on child monitor 20 g iv placed in R AC pt tolerated well. blood work obtained and sent to lab
[2024-12-29 19:26] VITALS: BP 196/125
[2024-12-29] MEDS: hydrALAZINE HCl 20 MG/ML VIAL 5 MG IVPUSH (19:26)
[2024-12-29] MEDS: Morphine Sulfate 2 MG/ML CARTRIDGE IVPUSH (19:27)
[2024-12-29] MEDS: ondansetron HCL 4 MG/2 ML VIAL IVPUSH (19:27)
[2024-12-29] MEDS: Nitroglycerin 2 % Oint 1 GM Packet 1 INCH TRANSDERMA (19:28)
[2024-12-29 19:32] LABS: Alanine Aminotransferase 39 U/L (0-31); Alkaline Phosphatase 112 U/L (39-117); Anion Gap 13 (12-20); Aspartate Amino Transferase 37 U/L (5-31); Bilirubin Direct 0.1 mg/dL (0.0-0.5); Bilirubin Total 0.4 mg/dL (0.0-1.0); Blood Urea Nitrogen 14 mg/dL (9-16); Calcium 10.1 mg/dL (8.4-10.2); Carbon Dioxide 26 mmol/L (22-29); Chloride 107 mmol/L (96-108); Creatinine Clr Calc Pharmacy 87.8; Estimated Glomerular Filt Rate > 60; Glucose Random 104 mg/dL (60-115); Magnesium 2.1 mg/dL (1.6-2.6); Potassium 3.7 mmol/L (3.3-5.1); Sodium 142 mmol/L (135-145); Total Protein 8.6 g/dL (6.5-8.0)
[2024-12-29 19:34] LABS: INTERNATIONAL NORM RATIO 0.9 (0.9-1.1); Prothrombin Time 10.9 SEC (10.9-12.4)
[2024-12-29 19:38] LABS: Troponin-I High Sensitivity 4.6 ng/L (<3.5-17.0)
[2024-12-29 19:52] LABS: TSH reflex Free T4 2.34 uIU/mL (0.32-4.0)
[2024-12-29] MEDS: iohexoL 350 MG/ML 100 ML INFUS..BTL IV (20:03)
[2024-12-29 20:13] LABS: Influenza A PCR NEGATIVE (Negative); Influenza B PCR NEGATIVE (Negative); Resp Syncy Virus RNA Qual PCR NEGATIVE (Negative); SARS COV2 PCR INHOUSE NEGATIVE (Negative)
[2024-12-29 20:16] VITALS: BP 177/113; PULSE 90; RESP 13
[2024-12-29 20:50] VITALS: BP 156/103; PULSE 78; RESP 16; O2SAT 100
[2024-12-29] MEDS: Ketorolac Tromethamine 15 MG/ML VIAL IVPUSH (22:08)
[2024-12-29 22:09] VITALS: BP 136/94; PULSE 72; RESP 10; TEMP 36.7; O2SAT 99
[2024-12-29 22:22] VITALS: BP 136/94; PULSE 72; RESP 10; TEMP 36.7; O2SAT 99
--- NOTE | 2024-12-29 22:22 | PC.NURSE ---
pt medicated according to mar. iv removed at discharge. pt ambulatory at discharge. pt and verbalized understanding of discharge plan
== END 2024-12-29 22:36 | disposition home or self-care (01) ==
PROVIDERS: Physician Assistant Medical; Emergency Provider Emergency Medicine; PCP Internal Medicine
DX: I16.0 Hypertensive urgency (principal); R51.9 Headache, unspecified; R10.2 Pelvic and perineal pain; R07.89 Other chest pain; I10 Essential (primary) hypertension; Z03.818 Encounter for observation for suspected exposure to other biological agents ruled out; Z79.899 Other long term (current) drug therapy
CPT/HCPCS: 0241U; 36415; 70450; 71045; 74177; 80048; 80076; 83735; 84443; 84484; 85025; 85610; 85730; 93005; 96374; 96375; 99284; J0360; J1885; J2270; J2405; Q9967

== ENCOUNTER → 2024-12-29 18:50 | Outpatient (BNV) | payer BC, SELFPAY | PROVIDERS: Emergency Provider Emergency Medicine; PCP Internal Medicine; Visit Provider Internal Medicine | DX: I45.19 Other right bundle-branch block (principal); I10 Essential (primary) hypertension; R94.31 Abnormal electrocardiogram [ECG] [EKG] | CPT/HCPCS: 93010 ==

== ENCOUNTER → 2024-12-29 18:50 | Outpatient (BNV) | payer BC, SELFPAY | PROVIDERS: Emergency Provider Emergency Medicine; PCP Internal Medicine; Visit Provider Student in an Organized Health Care Education/Training Program | DX: R10.9 Unspecified abdominal pain (principal); R51.9 Headache, unspecified; R11.2 Nausea with vomiting, unspecified; I10 Essential (primary) hypertension; R07.9 Chest pain, unspecified | CPT/HCPCS: 70450; 71045; 74177 ==

== ENCOUNTER 2025-03-11 19:10 | Emergency (ER) | payer MEDICAID, SELFPAY ==
--- NOTE | ~2025-03-11 | CT_ITS ---
CLINICAL HISTORY: Bloated , labile BP R O SBO, adrenal tumor CT abdomen and pelvis with contrast Comparison: CT of the abdomen pelvis from 12/29/2024 Findings: Mild right basilar atelectasis. 1 cm left adrenal gland nodule is unchanged. Right adrenal gland is normal. Gallbladder is unremarkable for CT. Liver, spleen, and pancreas are unchanged. No hydronephrosis. Multiple nonobstructing nephrolithiasis of the left kidney measure up to 4 mm. No new or enlarged lymphadenopathy. Mild dilatation of the small bowel loops with mixed density can be seen with enteritis and with slow transit, including of the ileum. No definite small bowel obstruction at this time. The appendix is not definitively seen. Severe stool burden. Change in caliber of the large intestine is nonspecific including imaged sigmoid colon. Mild distention of the urinary bladder with mild wall thickening. No significant change of the imaged uterus or adnexa. No significant change in sclerosis with likely small bone islands. Degenerative changes include hips, SI joints, and spine. IMPRESSION: 1. Severe stool burden. No small bowel obstruction. 2. Left adrenal gland nodules unchanged when compared to 12/29/2024. This document has been electronically signed by: Florentin Miles MD on 03/12/2025 02:21:55
--- NOTE | 2025-03-11 19:12 | ECG_ITS ---
Test Reason : PALPATATIONS Blood Pressure : */* mmHG Vent. Rate : 73 BPM Atrial Rate : 73 BPM P-R Int : 186 ms QRS Dur : 98 ms QT Int : 388 ms P-R-T Axes : 41 6 61 degrees QTcB Int : 427 ms Normal sinus rhythm Incomplete right bundle branch block Borderline ECG When compared with ECG of 29-Dec-2024 19:16, No significant change was found Referred By: Patricia Koch Electronically Signed By: Demetrio Morin
[2025-03-11 19:13] VITALS: BP 193/123; PULSE 83; RESP 18; TEMP 36.6; O2SAT 98; BMI 26.1
--- NOTE | 2025-03-11 19:13 | ED.GENADULT ---
HPI - General Adult General Chief complaint: Arrhythmia/Palpitations Stated complaint: high bp,dizziness,irregular heart beat Time Seen by Provider: 03/11/25 23:19 Source: patient and family Mode of arrival: ambulatory Limitations: no limitations History of Present Illness ED Provider: Dr. Karel De Santiago HPI narrative: 59-year-old female with a history of hypertension, anxiety, hypothyroidism who presents emergency department for evaluation of lightheadedness, dizziness, palpitations, lower back pain, near-syncope, bloated abdominal feeling, facial flushing. Patient states she was not been feeling well for several days. She was seen yesterday at [facility] and states she had a negative workup. She states she was not feeling any better so she went to an urgent care clinic and was noted to have a high blood pressure and was referred to the emergency department for evaluation. The patient has been seen here multiple times with similar complaints often with elevated blood pressures. Patient states that her PCP has referred her to a electric golf cart repairer and urban anthropologist to manage her labile blood pressure and she states that they have change your medications but she continues to have elevated blood pressure readings Patient states that yesterday in the afternoon she was not feeling well and she took her blood pressure every 30 minutes in her systolic blood pressures ranged from 167-177. She states she was had a bloated sensation in her abdomen for a long time and it has gotten significantly worse. She was also complaining of lower back pain. Related Data Home Medications ?Medication ?Instructions ?Recorded ?Confirmed amlodipine 5 mg tablet 5 mg PO BID 10/15/23 11/02/23 diazepam 2 mg tablet 2 mg PO DAILY PRN 10/15/23 11/02/23 diclofenac sodium 75 mg 75 mg PO BID 10/15/23 11/02/23 tablet,delayed release epinephrine 0.3 mg/0.3 mL 1 mg IM DAILY 10/15/23 11/02/23 injection, auto-injector magnesium oxide 400 mg (241.3 mg 400 mg PO DAILY 10/15/23 11/02/23 magnesium) tablet sumatriptan succinate 25 mg tablet 25 mg PO Q2-4H PRN 10/15/23 11/02/23 Previous Rx's ?Medication ?Instructions ?Recorded Synthroid 150 mcg tablet 150 mcg PO DAILY #30 tabs 10/08/23 (levothyroxine) losartan 50 mg tablet 50 mg PO DAILY #60 tabs 03/20/24 lorazepam 1 mg tablet (Ativan) 1 mg PO BEDTIME PRN anxiety #20 03/23/24 tabs potassium chloride 10 mEq 10 meq PO DAILY #30 caps 03/23/24 capsule,extended release lorazepam 0.5 mg tablet (Ativan) 0.5 mg PO DAILY PRN sleep #5 tabs 05/27/24 hydralazine 25 mg tablet 25 mg PO TID PRN hypertension #20 12/29/24 tabs Allergies Allergy/AdvReac Type Severity Reaction Status Date / Time propranolol [PROPRANOLOL] Allergy Unknown UNKNOWN Verified 03/11/25 19:15 chlorhexidine Allergy Unknown Verified 03/11/25 19:15 prednisone AdvReac Severe elevated BP Verified 03/11/25 19:15 propylthiouracil AdvReac Severe urticaria Verified 03/11/25 19:15 amlodipine AdvReac Anxiety Verified 03/11/25 19:15 clonidine AdvReac Palpitation Verified 03/11/25 19:15 s Review of Systems Review of Systems: Yes all other systems are reviewed and are negative [facility] Past Medical History Medical History Anxiety Hypertension Disorder of sacrum Social History Social History Patient Tobacco Use Status: Never used Tobacco Physical Exam ED Vital Signs: Vital Signs - 24 hr 03/11/25 19:13 03/11/25 19:37 03/11/25 19:59 Temperature 97.8 F 98.3 F Pulse Rate 83 79 74 Respiratory Rate 18 20 18 Blood Pressure 193/123 H 175/113 H 167/115 H Pulse Oximetry 98 99 96 Oxygen Delivery Method Room Air Room Air Room Air 03/11/25 22:11 03/12/25 00:19 Temperature 98.1 F 97.8 F Pulse Rate 68 70 Respiratory Rate 14 16 Blood Pressure 142/102 H 165/106 H Pulse Oximetry 99 97 Oxygen Delivery Method Room Air Room Air BMI result Body Mass Index 26.1 Vital signs did reveal elevated blood pressures with a blood pressure of 193/123 at the highest and a blood pressure of 136/94 at the lowest. In reviewing her blood pressures over her multiple visits in the last year she was always had significantly elevated diastolic and systolic blood pressures. Exam: General: Awake, alert patient appears anxious and she was very frustrated about the amount of time that she was had to wait here in the emergency supervisor slashing department: Normocephalic, atraumatic EENT: PERRL, Lids normal, sclera normal, conjunctiva normal, nose normal , ears normal, throat without erythema or exudates Neck: Supple, no adenopathy Lung: breath sounds symmetric, no wheezing, rales or rhonchi Chest: symmetric movement, nontender Heart: regular rate and rhythm, normal S1, S2 no murmurs or rubs Abdomen: soft, mild to moderate diffuse tenderness nondistended, normal bowel sounds Back: no vertebral tenderness, no CVAT Extremities: no deformities, moves all extremities symmetrically Neuro: Awake, alert, oriented, normal speech, cranial nerves intact, moves all extremities symmetrically Psych: Pleasant, cooperative Course Course Course Narrative: This is a Rapid Medical Examination (RME) performed by Lisa Koch PA-C in triage. Full HPI, ROS, assessment and treatment plan per primary provider in the Main ED. 03/11/251913 RUI Dowling Hx: 59 yo female hx HTN here for eval of nausea, dizziness, and low back pain. Takes enalapril and spironolactone for blood pressure. Took an extra enalapril on her way to the ED today along with a clonazepam. PE/vitals: Hypertensive to 193/123. Vitals otherwise WNL. She is well-appearing. Plan: labs, ekg Medications Administered Discontinued Medications Generic Name Dose Route Start Last Admin Trade Name Thompson PRN Reason Stop Dose Admin Iohexol 85 ml 03/12/25 01:09 03/12/25 01:09 Iohexol 350 Mg/Ml 100 Ml Infus..Btl IV 03/12/25 01:10 85 ml ONCE ONE Administration Ketorolac Tromethamine 15 mg 03/11/25 23:59 03/12/25 00:50 Ketorolac Tromethamine 15 Mg/Ml Vial IVPUSH 03/12/25 00:00 15 mg ONCE STA Administration Lorazepam 2 mg 03/11/25 23:59 03/12/25 00:50 Lorazepam 1 Mg Tablet PO 03/12/25 00:00 2 mg ONCE STA Administration Ondansetron HCl 4 mg 03/11/25 22:08 03/11/25 22:11 Ondansetron Hcl 4 Mg/2 Ml Vial IVPUSH 03/11/25 22:09 4 mg ONCE ONE Administration Medical Decision Making Medical Decision Making [facility] Narrative: 59-year-old female with a history of hypertension, anxiety, hypothyroidism who presents emergency department for evaluation of lightheadedness, dizziness, palpitations, lower back pain, near-syncope, bloated abdominal feeling, facial flushing. Patient states she was not been feeling well for several days. She was seen yesterday at [facility] and states she had a negative workup. She states she was not feeling any better so she went to an urgent care clinic and was noted to have a high blood pressure and was referred to the emergency department for evaluation. Patient was had frequent visits your to the emergency department with similar symptoms and it was always had elevated systolic and diastolic blood pressures. Patient was high as blood pressure during this visit was 193/123 with the lowest blood pressure being 136/94. Physical examination did reveal diffuse abdominal tenderness, she does not appear to be distended on my exam. She does appear to be anxious. Differential diagnosis: ?Includes but is not limited to myocardial infarction, myocardial ischemia, pheochromocytoma, renal stenosis, anemia, electrolyte abnormalities Course: 00:20 My interpretation patient's laboratory evaluation is as follows: CBC was normal. CMP was normal except for an elevated glucose of 119 and elevated BUN of 21 with a normal creatinine. High sensitive troponin I was detectable but not elevated 3.9. At this time I am concerned that the patient may have a secondary cause of her hypertension such as pheochromocytoma or renal artery stenosis. Ask the patient if she has been worked up for these conditions in the past but she was not certain. I did order a CT scan of the abdomen pelvis IV contrast who evaluated her adrenal glands and to evaluate for other possible cause of your abdominal pain and bloated sensation. I also ordered a plasma metanephrines which will be drawn 30 minutes after she was lying flat from her IV catheter and a random urine metanephrine. Patient was given Ativan 2 mg orally for anxiety and Toradol 15 mg IV for her abdominal pain. Admission/Observation Consideration of admission/observation: Escalation of care including admission/observation considered (Yes) Lab Data [facility] Lab Attestation statement: I reviewed the patient's lab results. 03/11/25 19:24 03/11/25 19:24 Labs: Lab Results 03/11/25 Range/Units 19:24 WBC 4.8 (4.8-10.8) X10*3/uL RBC 4.91 (4.20-5.50) X10*6/uL Hgb 14.0 (12.0-16.0) g/dl Hct 42.8 (37.0-47.0) % MCV 87.2 (80.0-98.0) fL MCH 28.5 (27.0-33.0) pg MCHC 32.7 (31.0-35.0) g/dl RDW 12.7 (11.0-16.0) % Plt Count 223 (160-400) X10*3/uL MPV 8.9 L (9.4-12.3) fL Immature Gran % (Auto) 0.0 (0.0-0.4) % Neut % (Auto) 60.2 (45-73) % Lymph % (Auto) 29.9 (20-40) % [place] % (Auto) 6.7 (2-11) % Eos % (Auto) 1.9 (0-4) % Baso % (Auto) 1.3 (0-2) % Lymph # (Auto) 1.4 (1.2-4.9) X10*3/uL [place] # (Auto) 0.3 (0.1-1.2) X10*3/uL Eos # (Auto) 0.1 (0.0-0.4) X10*3/uL Baso # (Auto) 0.1 (0.0-0.2) X10*3/uL Abs Immat Gran (auto) 0.00 (0.00-0.03) X10*3/uL Absolute Neuts (auto) 2.9 (2.0-8.3) x10*3/uL Absolute Nucleated RBC 0.000 (0.0-0.012) X10*3/uL Nucleated RBC % (auto) 0.0 (0.0-0.2) /100WBC Sodium 144 (135-145) mmol/L Potassium 3.8 (3.3-5.1) mmol/L Chloride 107 (96-108) mmol/L Carbon Dioxide 28 (22-29) mmol/L Anion Gap 13 (12-20) BUN 21 H (9-16) mg/dL Creatinine 1.02 (0.5-1.4) mg/dL Estim Creat Clear Calc 73.4 Estimated GFR 56 Random Glucose 119 H (60-115) mg/dL Calcium 9.8 (8.4-10.2) mg/dL Magnesium 2.3 (1.6-2.6) mg/dL Total Bilirubin 0.4 (0.0-1.0) mg/dL AST 24 (5-31) U/L ALT 21 (0-31) U/L Alkaline Phosphatase 94 (39-117) U/L Troponin I High Sens 3.9 (<3.5-17.0) ng/L Total Protein 7.2 (6.5-8.0) g/dL Albumin 4.4 (3.5-5.0) g/dL Discharge Plan Discharge Clinical Impression: Elevated blood pressure reading, Palpitation, Dizziness, Abdominal bloating, Adrenal nodule Patient Disposition: Home, Self-Care Additional Instructions: You had a complete blood count and comprehensive metabolic panel in the emergency department which were unremarkable. Your high sensitive troponin I was detectable but not elevated which is reassuring. Your EKG was unremarkable. Your CT scan of your abdomen pelvis did reveal constipation but no other cause for your bloated sensation. The CT scan did reveal a 1 cm left adrenal gland nodule which is unchanged compared to his CT scan which was done on 12/29/2024. You have been here in the emergency department multiple times with these complaints and each time you been here you have had elevated blood pressures. It is possible that you may have a pheochromocytoma but this has a difficult diagnosis to make. A screening test for this disease is plasma and urine metanephrines . I did order these 2 tests on you. These tests are pending and your doctor can check these results or you can check them on the patient portal. I want you to discuss your high blood pressure and your symptoms with your doctor to see if your doctor thinks that there is a secondary cause for your elevated blood pressures such as pheochromocytoma or renal artery stenosis. Continue taking your medications as prescribed by your providers. Follow-up with your doctor in 2 days. Please return to the emergency department if your symptoms get worse or if you develop any symptoms that are concerning to you. Prescriptions: No Action levothyroxine [Synthroid] 150 mcg tablet 150 mcg PO DAILY Qty: 30 0RF lorazepam [Ativan] 1 mg tablet 1 mg PO BEDTIME PRN (Reason: anxiety) Qty: 20 0RF potassium chloride 10 mEq capsule, extended release 10 meq PO DAILY Qty: 30 0RF losartan 50 mg tablet 50 mg PO DAILY Qty: 60 0RF lorazepam [Ativan] 0.5 mg tablet 0.5 mg PO DAILY PRN (Reason: sleep) Qty: 5 0RF hydralazine 25 mg tablet 25 mg PO TID PRN (Reason: hypertension) Qty: 20 0RF Rx Instructions: PRN Blood pressure higher than 180s systolic amlodipine 5 mg tablet 5 mg PO BID magnesium oxide 400 mg (241.3 mg magnesium) tablet 400 mg PO DAILY sumatriptan succinate 25 mg tablet 25 mg PO Q2-4H PRN diazepam 2 mg tablet 2 mg PO DAILY PRN diclofenac sodium 75 mg tablet,delayed release (DR/EC) 75 mg PO BID epinephrine 0.3 mg/0.3 mL auto-injector 1 mg IM DAILY Interventions: ED Discharge Assessment Last Done: 03/12/25 03:13 Discharge Date/Time: 03/12/25 03:14 Print Language: Cook Islander
[2025-03-11 19:28] LABS: MANUAL DIFF FLAG NO
[2025-03-11 19:30] LABS: Basophils Absolute Auto 0.1 X10*3/uL (0.0-0.2); Basophils Percent Auto 1.3 % (0-2); Eosinophils Absolute Auto 0.1 X10*3/uL (0.0-0.4); Eosinophils Percent Auto 1.9 % (0-4); Hematocrit 42.8 % (37.0-47.0); Lymphocytes Absolute Auto 1.4 X10*3/uL (1.2-4.9); Lymphocytes Percent Auto 29.9 % (20-40); Mean Corpuscular HGB Conc 32.7 g/dl (31.0-35.0); Mean Corpuscular Hemoglobin 28.5 pg (27.0-33.0); Mean Corpuscular Volume 87.2 fL (80.0-98.0); Mean Platelet Volume 8.9 fL (9.4-12.3); Monocytes Absolute Auto 0.3 X10*3/uL (0.1-1.2); Monocytes Percent Auto 6.7 % (2-11); Neutrophils Absolute Auto 2.9 x10*3/uL (2.0-8.3); Neutrophils Percent Auto 60.2 % (45-73); Platelet Count 223 X10*3/uL (160-400); Red Blood Count 4.91 X10*6/uL (4.20-5.50); Red Cell Distribution Width 12.7 % (11.0-16.0); White Blood Count 4.8 X10*3/uL (4.8-10.8)
[2025-03-11 19:37] VITALS: BP 175/113; PULSE 79; RESP 20; O2SAT 99
[2025-03-11 19:43] LABS: Alanine Aminotransferase 21 U/L (0-31); Albumin Level 4.4 g/dL (3.5-5.0); Alkaline Phosphatase 94 U/L (39-117); Anion Gap 13 (12-20); Aspartate Amino Transferase 24 U/L (5-31); Bilirubin Total 0.4 mg/dL (0.0-1.0); Blood Urea Nitrogen 21 mg/dL (9-16); Calcium 9.8 mg/dL (8.4-10.2); Carbon Dioxide 28 mmol/L (22-29); Chloride 107 mmol/L (96-108); Creatinine Clr Calc Pharmacy 73.4; Estimated Glomerular Filt Rate 56; Glucose Random 119 mg/dL (60-115); Magnesium 2.3 mg/dL (1.6-2.6); Potassium 3.8 mmol/L (3.3-5.1); Sodium 144 mmol/L (135-145); Total Protein 7.2 g/dL (6.5-8.0)
[2025-03-11 19:50] LABS: Troponin-I High Sensitivity 3.9 ng/L (<3.5-17.0)
[2025-03-11 19:59] VITALS: BP 167/115; PULSE 74; RESP 18; TEMP 36.8; O2SAT 96
--- NOTE | 2025-03-11 21:03 | PC.NURSE ---
pt reports feeling short of breath d/t nasal congestion. sounds slightly congested. pt is speaking full clear sentences, nad. lung sounds cta, resp even and unlabored. on o2 monitoring 97% RA. call stovall within reach.
[2025-03-11 22:11] VITALS: BP 142/102; PULSE 68; RESP 14; TEMP 36.7; O2SAT 99
[2025-03-11] MEDS: ondansetron HCL 4 MG/2 ML VIAL IVPUSH (22:11)
--- NOTE | 2025-03-11 23:10 | PC.NURSE ---
helped pt to bathroom, pt ambulatory with steady gait.
[2025-03-12 00:19] VITALS: BP 165/106; PULSE 70; RESP 16; TEMP 36.6; O2SAT 97
--- NOTE | 2025-03-12 00:20 | PC.NURSE ---
MD aware of BP.
[2025-03-12] MEDS: LORazepam 1 MG TABLET 2 MG PO (00:50)
[2025-03-12] MEDS: Ketorolac Tromethamine 15 MG/ML VIAL IVPUSH (00:50)
[2025-03-12] MEDS: iohexoL 350 MG/ML 100 ML INFUS..BTL 85 ML IV (01:09)
[2025-03-12 02:49] VITALS: BP 134/101; PULSE 68; RESP 19; TEMP 36.5; O2SAT 96
[2025-03-12 03:13] VITALS: BP 134/101; PULSE 68; RESP 19; TEMP 36.5; O2SAT 96
[2025-03-16 17:39] LABS: Metanephrine, Free <25 pg/mL (<=57); Normetanephrines, Free 32 pg/mL (<=148); Total Metanephrine, Free 32 pg/mL (<=205)
== END 2025-03-12 03:14 | disposition home or self-care (01) ==
PROVIDERS: Physician Assistant Medical; Emergency Provider Emergency Medicine Emergency Medical Services; PCP Internal Medicine
DX: I10 Essential (primary) hypertension (principal); R00.2 Palpitations; R42 Dizziness and giddiness; R14.0 Abdominal distension (gaseous); E27.9 Disorder of adrenal gland, unspecified; E03.9 Hypothyroidism, unspecified; M54.50 Low back pain, unspecified; F41.9 Anxiety disorder, unspecified; Z79.899 Other long term (current) drug therapy
CPT/HCPCS: 36415; 74177; 80053; 83735; 83835; 84484; 85025; 93005; 96374; 96375; 99284; J1885; J2405; Q9967

== ENCOUNTER → 2025-03-11 19:12 | Outpatient (BNV) | payer MEDICAID, SELFPAY | PROVIDERS: Emergency Provider Emergency Medicine Emergency Medical Services; PCP Internal Medicine; Visit Provider Internal Medicine Cardiovascular Disease | DX: I45.10 Unspecified right bundle-branch block (principal) | CPT/HCPCS: 93010 ==

== ENCOUNTER → 2025-03-12 | Outpatient (BNV) | payer MEDICAID, SELFPAY | PROVIDERS: Emergency Provider Emergency Medicine Emergency Medical Services; PCP Internal Medicine; Visit Provider Radiology Neuroradiology | DX: K56.41 Fecal impaction (principal); E27.9 Disorder of adrenal gland, unspecified | CPT/HCPCS: 74177 ==